=== PATIENT | female | born 1980 | race Caucasian/White ===

== ENCOUNTER 2018-03-20 19:01 | Inpatient (IN) | payer BC ==
[2018-03-20 19:40] LABS: PLATELET COUNT 304 10^3/uL (150-400)
--- NOTE | 2018-03-20 19:48 | EDPHY ---
H & P Stated Complaint: medical clear for ECT - Personal History LMP (Females 10-55): 8-14 Days Ago Current Tetanus Diphtheria and Acellular Pertussis (TDAP): Yes - Medical/Surgical History Hx Asthma: No Hx Chronic Respiratory Disease: No Hx Diabetes: No Hx Cardiac Disease: No Hx Renal Disease: No Hx Cirrhosis: No Hx Alcoholism: No Hx HIV/AIDS: No Hx Splenectomy or Spleen Trauma: No Other PMH: Depression, Bipolar, Hypothyroid, Migraine's, Herniation L3/4 - Social History Smoking Status: Never smoked Alcohol Use: Sober Drug Use: None Time Seen by Provider: 03/20/18 19:13 HPI/ROS: CHIEF COMPLAINT: Medical clearance for ECT HISTORY OF PRESENT ILLNESS: 37-year-old female with severe depression is presents for medical clearance for ECT. She has a history severe depression, starting in the period. She underwent ECT x1 in the past, with significant relief and depression. The benefit lasted for approximately 3 years and now the depression has returned. Multiple medication changes without relief. Feels suicidal, does not currently have a plan. She is scheduled for ECT tomorrow. She has no physical complaints. No recent illness or injury. No prior cardiopulmonary disease. REVIEW OF SYSTEMS: complete 10 point ROS reviewed and is negative except for the noted elements in the HPI (Yolanda Nicholson) - Social History Additional Social History: Lives in [place] (Yolanda Nicholson) - Physical Exam Exam: General Appearance: Alert, pleasant Eyes: Pupils equal and round, no conjunctival pallor ENT, Mouth: Mucous membranes moist Neck: Normal inspection Respiratory: Lungs are clear to auscultation Cardiovascular: Regular rate and rhythm, no murmur Gastrointestinal: Abdomen is soft and nontender Neurological: A&O, nonfocal, normal gait Skin: Warm and dry, no rash Extremities: Nontender, no pedal edema Psychiatric: Mood and affect normal (Yolanda Nicholson) Constitutional: Initial Vital Signs Temperature (C) 36.7 C 03/20/18 19:04 Heart Rate 72 03/20/18 19:04 Respiratory Rate 18 03/20/18 19:04 Blood Pressure 133/72 H 03/20/18 19:04 O2 Sat (%) 99 03/20/18 19:04 O2 Delivery Mode Room Air Allergies/Adverse Reactions: stan seeds Allergy (Uncoded 03/20/18 19:08) Home Medications: Medication Instructions Recorded Brexpiprazole [Rexulti 1 MG (*)] 1 mg PO Q2D 03/20/18 Levothyroxine [Synthroid 150 mcg 150 mcg PO DAILY06 03/20/18 (*)] [place] Carbonate [[place] 300 mg PO TID 03/20/18 Carbonate Cap 300 mg (*)] Mirtazapine 15 mg PO HS 03/20/18 Venlafaxine HCl [Venlafaxine HCl 75 mg PO DAILY 03/20/18 ER] Venlafaxine HCl [Venlafaxine HCl 150 mg PO DAILY 03/20/18 ER] celeCOXIB [Celebrex (*)] 200 mg PO DAILY 03/20/18 clonazePAM [Clonazepam] 1 mg PO BID@09,12 03/20/18 Medical Decision Making ED Course/Re-evaluation: 2044: seen by [facility], placed on an M1 hold. Looking for inpatient disposition. Interestingly, this patient is not here for planned ECT. She is not a patient of Dr. Delarosa. However she has severe depression and recently had a suicidal attempt. (Yolanda Nciholson) Assumed care of this patient at 9:[address] Yolanda Nicholson. Her care was assumed by Dr. Compa Pan at 11:00 p.m.. We are awaiting placement. Patient asked to take her typical night meds and I agree that she may. (Kelly Robin) Differential Diagnosis: Differential diagnosis of the patient's presenting complaint was considered including but not limited to functional and major depression, situational depression, hypothyroidism, medication side effect, drugs and alcohol abuse. ( Kelly Robin) Other Provider: [address] Robin pending placement. 07 patient signed out to Dr. Gilbert pending placement. (Anant Pan) Care assumed at 6:40 a.m. Plan for inpatient placement at [facility]. 1445: Signed out to Dr. Dominguez with inpatient placement still pending. (Kg Gilbert) - Data Points Laboratory Results: Laboratory Results 03/20/18 19:30 03/20/18 19:30 Medications Given: Celecoxib (Celebrex) 200 mg PO BID LUCIO Stop: 09/17/18 08:59 Last Admin: 03/21/18 07:15 Dose: 200 mg Discontinued Medications Brexpiprazole (Rexulti) 1 mg PO EDNOW ONE Stop: 03/21/18 07:46 Last Admin: 03/21/18 07:58 Dose: 1 mg Clonazepam (Klonopin) 1 mg PO EDNOW ONE Stop: 03/21/18 06:43 Last Admin: 03/21/18 07:14 Dose: 1 mg Clonazepam (Klonopin) 1 mg PO EDNOW ONE Stop: 03/21/18 13:47 Last Admin: 03/21/18 14:13 Dose: 1 mg Levothyroxine Sodium (Synthroid) 150 mcg PO DAILY AT 6AM ONE Stop: 03/21/18 07:01 Last Admin: 03/21/18 07:14 Dose: 150 mcg [place] Carbonate ([place] Carbonate) 300 mg PO ONCE ONE Stop: 03/21/18 07:01 Last Admin: 03/21/18 07:15 Dose: 300 mg [place] Carbonate ([place] Carbonate) 300 mg PO EDNOW ONE Stop: 03/21/18 13:47 Last Admin: 03/21/18 14:13 Dose: 300 mg Venlafaxine HCl (Effexor Xr) 150 mg PO DAILY ONE Stop: 03/21/18 06:31 Last Admin: 03/21/18 07:14 Dose: 150 mg Departure - Departure Disposition: [facility] IP Clinical Impression: Depression, Suicidal ideation Condition: Good Referrals: JOEL ARCHIBALD [Other] - As per Instructions
--- NOTE | 2018-03-20 21:00 | CPEKG ---
Test Reason : OPEN Blood Pressure : / mmHG Vent. Rate : 068 BPM Atrial Rate : 068 BPM P-R Int : 176 ms QRS Dur : 087 ms QT Int : 405 ms P-R-T Axes : 067 060 068 degrees QTc Int : 431 ms Sinus rhythm Confirmed by Yolanda Nicholson ([id number]) on 03/20/2018 8:59:36 PM Referred By: Yolanda Nicholson Confirmed By:Yolanda Nicholson
--- NOTE | 2018-03-20 22:41 | ASMTTLCEVL ---
TLC Evaluation - Basic Information Evaluation Start Date and 03/20/2018 08:50 PM Time Hospital Status Answers: M1 Hold 72-hr M1 Hold Start Date 03/20/2018 08:17 PM and Time Patient statement Notes: I have severe depression with anxiety and feelings of doom. Narrative Notes: Pt is a 37 year old female who self presented to [facility] Ed from [place]. Pt called [facility] earlier to inquire about our ECT program and came to the emergency department for medical clearance. Pt reports she has been depressed for 5 months with suicidal thoughts every day. She stated on the drive down to our hospital, she thought, Maybe if I just drove off the road. She reports her symptoms started after she developed post- depression with her youngest daughter who is 3 years old. Pt reports she has been having intrusive thoughts Pt reports she is unable to care for her children, function at her job or concentrate. Pt reports she spends most of her days isolated and staying in bed all day. Diagnosis History Notes: Pt reports bipolar 2 has been mentioned to her but no official dx has been made. She reports one psychiatrist told her he suspects she may have a mild form of it and the other doctor does not suspect she has it Prior suicide attempts Notes: Pt reported she attempted suicide 2 weeks ago by overdosing on clonazepam and drinking wine. Pt stated, It didnt work for course, and I just fell asleep. Pt stated she also had a suicide attempt after her youngest daughter was born. Prior hospitalizations Notes: Pt was hospitalized 3 years ago at [facility] for 2 weeks and then she went to [facility] and stayed a month in their post- unit where she received ECT treatments. Pt stated she responded well to the treatment and was functional when she got out of the hospital. Treatment Responses Notes: Pt stated she felt ECT was helpful. History of violence Notes: Pt denies any HI. Therapist: None Psychiatrist: Pt sees Jose Xiong MD Medications (name, dosage, route, freq uency) Notes: Clonazepam 1 mg 1 in am and 1 PM; Effexor 225mg ER; Mertazapine 15mg at bedtime; [place] 300mg TID; Rexalte 1mg every other day; Celebrex and synthroid Allergies/Reaction Notes: Zachary Sleep Notes: Pt reports she has erratic sleep. She states he wakes up at 3:30am every morning and states, I dont know what to do from there. Appetite Notes: Wnl Medical/Surgical history Notes: Hypothyroidism and a herniated disk Substance use history (frequency, intensity, his tory, duration) Notes: Pt stated she was drinking wine occasionally but has stopped because it was making her depression worse. Pt denied any drug use. Pts utox was negative for all substances and bal was.0. Family composition Notes: Pts father in 2010 of cancer. Her mother and sister live in [place]. Pt reports she has a strained relationship with her sister and mother. Need for family Answers: No participation in patient's care Family psychiatric/substance abuse history Notes: Pt reported her father and sister had a hx of alcoholism. Developmental history Notes: Pt reported she struggled with anorexia at age [age] years old and went into tx. Pt reported she was a straight A student, high achiever and received a full music scholarship for college. Pt reported her parents suspected she may have OCD as a child. Abuse concerns Answers: None Marital status/children Notes: Pt is and has 2 children ages 3 and 5. Pts ex- have full custody of the children. Pt had visitation rights until 2 months ago and then she stated, I havent been able to care for them. Pt stated she lost custody of her children nahed of the post- thoughts and Im not well enough. Living situation Notes: Pt lives in [place], [place] alone. Sexual history/orientation Notes: Unable to assess Peer support/family strengths Notes: Pt stated she does not have any friends. Education level/history Notes: Pt reports she has 4 degrees. She has a BA in Music a Ba in Communication Disorders a Masters in Speech Language Pathology and she almost received her doctorate in music. 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 Pt took FMLA 2 days ago. Notes: None Legal Notes: None reported. Protestant/Spiritual Notes: None reported. Leisure Notes: Unable to assess. Collateral Notes: None Patient's strengths Answers: Insightful (Please select at least TWO strengths): Intelligent Motivated for Treatment Willingness TLC Evaluation - Mental Status Exam Appearance: Answers: Appropriate Eye Contact: Answers: Good/Direct Mood: Answers: Depressed Affect: Answers: Anxious Nervous Sad Behavior: Answers: Cooperative Crying Speech: Answers: Relevant Logical Clear Coherent Thought Process: Answers: Organized Oriented Alert Intact Insight: Answers: Good Judgement: Answers: Fair Depression Answers: Difficulty Concentrating Signs/Symptoms: Flat Affect Hopelessness Psychomotor Retardation Sad Mood Worthlessness Anxiety Signs/Symptoms Answers: Generalized Anxiety Hallucinations: Answers: None Pt reported to have Answers: No suicidal/self-injuring ideation/behavior? Pt reported to be making Answers: Yes suicidal/self-injuring threats? Pt reported to have Answers: No aggression/assault ideation/behavior? Pt reported to be making Answers: No aggression/assault threats? Pt exhibits inability to Answers: No care for self/grave disability? Ideation/behavior is Answers: No chronic? Patient has a specific Answers: No plan? History of Answers: Yes suicidal/self-injuring ideation, behavior, or threats? History of Answers: No aggressive/assaultive ideation, behavior, or threats? History of serious Answers: No physical harm to self/others while in treatment setting? TLC Evaluation - Suicide/Homicide Risk Suicide Risk Factors: Answers: < 20 or > 40 Years of Age Flat Affect Hopelessness Lack of Social Support Major Depression Prior Suicide Attempt(s) Unstable Living Situation Homicide/violence risk Answers: None factors: Current Suicidal Answers: Yes Ideation? Current Suicide Ideation Pt stated she has intrusive thoughts daily for the Frequency: past 5 months. Current Suicidal Ideation Answers: Yes in the Past 48 Hours? Current Suicidal Ideation Answers: Yes in the Past Month? Current Suicidal Answers: No Ideation, Worst Ever? Suicide Internal Answers: Absence of Psychosis Protective Factors: Suicide External Answers: Responsibility to Protective Factors: Children Ranking of patient's Answers: Severe suicidal risk: Ranking of patient's Answers: Low homicidal risk: TLC Evaluation - Wrap-up AXIS I Diagnosis (include DSM-V and ICD-10 codes), must also be entered in [employer], which is the source of truth. Notes: In consultation with [facility] ED physician, Yolanda Nicholson MD and on-call psychiatrist Nasrin Linda MD concurred that pt appears to meet 27-65 criteria requiring psychiatric hospitalization as pt appears to be at risk of harm to self due to a mental illness condition. Pt was given the 3[facility] prohibited belongings list while in the ED. Major Depressive Disorder, recurrent, severe 296.33 (F33.2) Evaluation End Date and 03/20/2018 10:35 PM Time (HH:MM): Date Signed: 03/20/2018 10:40 PM Electronically Signed By:Chelle Trent
[2018-03-21] MEDS ORDERED: VENLAFAXINE XR 150 MG CAP PO ONE (06:30)
[2018-03-21] MEDS ORDERED: LITHIUM CARBONATE ER 300 MG TAB PO ONE (06:30)
[2018-03-21] MEDS ORDERED: clonazePAM 1 MG TAB PO ONE ×2 (06:42→13:46)
[2018-03-21] MEDS ORDERED: LITHIUM CARBONATE 300 MG CAP PO ONE (07:00)
[2018-03-21] MEDS ORDERED: LEVOTHYROXINE 150 MCG TAB PO ONE (07:00)
[2018-03-21] MEDS ORDERED: BREXPIPRAZOLE 1 MG TAB PO ONE (07:45)
[2018-03-21] MEDS ORDERED: LITHIUM CARBONATE 300 MG TAB PO ONE (13:46)
--- NOTE | 2018-03-21 14:44 | ASMTLCPROG ---
Notes Note: Notes: TLC met with pt. to finalize dispo. Pt was read her rights and signed belongings list. Pt will transfer to [facility]. Date Signed: 03/21/2018 02:43 PM Electronically Signed By:Supriya Cannon
--- NOTE | 2018-03-21 14:46 | ASMTTCLDSP ---
TLC Discharge Disposition Disposition: Answers: Admit Disposition Notes: Notes: In consultation with [facility] ED physician, Kg Gilbert MD and on-call psychiatrist, Roni More MD, both concurred that pt appears to meet 27-65 criteria requiring psychiatric hospitalization as pt appears to be at risk of harm to self due to a mental illness condition. Pt was given the 3N prohibited belongings list while in the ED. Discharge Concerns/Recommendations: Notes: Admit to 3[facility] Was patient given the Answers: Yes Inpatient Behavioral Health Prohibited Belongings List while in the ED? For inpatient Dr. Roni More admission, the following psychiatrist agreed to accept patient for admission to Behavioral Health ([facility]): Type of Hold: Answers: M1/72-hour Hold Hold initiated by: Answers: ED Physician Date Signed: 03/21/2018 02:45 PM Electronically Signed By:Supriya Cannon
--- NOTE | 2018-03-21 15:58 | GCON ---
[f rep ] CONSULTATION MEDICINE CONSULTATION DATE OF CONSULTATION: 03/21/2018 CHIEF COMPLAINT: Depression. HISTORY: This is a 37-year-old female who has a past medical history of severe depression, previousl y requiring ECT, as well as hypothyroid and migraines who presents with significant depression with s uicidal ideation. Patient notes she has been having a hard time with thinking about hurting herself, and per chart review, also had a recent suicide attempt. 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 She states that several years ago, she had ECT for severe depression and this put her depression into remission up until recently. She does agree to not do an ything to harm herself while here in care and states that she does feel safe currently. PAST MEDICAL HISTORY: Includes: 1. Depression. 2. Hypothyroidism. 3. Migraines. 4. Endometriosis. 5. Herniated disk. PAST SURGICAL HISTORY: Includes prior laparoscopy. FAMILY HISTORY: Noncontributory. SOCIAL HISTORY: Patient is . 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 She does not drink. Does not smoke. Does not use any drugs. REVIEW OF SYSTEMS: 10-point review of systems obtained and negative, except as per HPI. HOME MEDICATIONS: Include: 1. [place]. 2. Venlafaxine. 3. Brexpiprazole. 4. Mirtazapine. 5. Clonazepam. 6. Celebrex. 7. Levothyroxine. ALLERGIES: No known drug allergies. PHYSICAL EXAM: VITAL SIGNS: BP 120/88, heart rate 76, respiratory rate 16, O2 sats 99% on room air, temperature 36.3. GENERAL APPEARANCE: Well-developed/well-nourished female. She is awake and aler t. She is in no acute distress. EYES: Anicteric. HENT: Oropharynx clear. CARDIOVASCULAR: Regul ar rate and rhythm. No MRG. PULMONARY: CTA bilaterally. Normal work of breathing. ABDOMEN: Soft , nontender, nondistended. EXTREMITIES: No clubbing, cyanosis, or edema. SKIN: Warm, dry, well perfused. NEURO/PSYCH: Patidolly montesinos has a flat affect. She is expressing suicidal ideation and depression. CLINICAL DATA: Labs reviewed and notable for white blood cell count of 10.5. Chemistry notable for sodium of 131 and creatinine 1.2. U-tox is negative. ASSESSMENT/PLAN: This is a 37-year-old female with a history of depression, presenting with suicidal ideation. 1. Suicidal ideation. Patient is currently on an M1 hold and will be brought over to Behavioral a lth Unit. I do not see any medical reason that she would not be able to participate in ECT or any ot her therapy felt to be indicated by the behavior health team. She has benefitted from ECT in the pas t. 2. Depression. As per above. 3. Acute kidney injury. Noted on chemistry to have a serum creatinine of 1.2, which is likely above her baseline, also sodium of 131, consistent with likely prerenal volume depletion. Recommend she p ush fluids. Do not feel that need to be repeated unless she has poor urine output or othe r signs or symptoms that this is not improving. 4. Hypothyroid. Would continue her levothyroxine. 5. Herniated disk. She states this is something she is able to manage with stretching exercises and Celebrex. Would continue both of those. 6. Patient is new to my care. Old records reviewed, summarized as per HPI and past medical history. Care plan reviewed with Behavioral Health liaison, including plans for inpatient behavioral health monitoring. Thank you for this consultation. Medicine will be available peripherally should questions arise carolina landin this patient's hospitalization. /[id number]/MODL
[2018-03-21] MEDS ORDERED: NICOTINE POLACRILEX 2 MG GUM B PRN (21:21)
[2018-03-21] MEDS ORDERED: LORazepam 0.5 MG TAB PO PRN (21:21)
[2018-03-21] MEDS ORDERED: MAG HYDROX/AL HYDROX/SIMETH 30 ML UDCUP PO PRN (21:21)
[2018-03-21] MEDS ORDERED: OLANZapine DISINTEGR 10 MG TAB PO PRN (21:21)
[2018-03-21] MEDS ORDERED: MAGNESIUM HYDROXIDE 30 ML UDCUP PO PRN (21:21)
[2018-03-21] MEDS ORDERED: MELATONIN 3 MG TAB PO PRN (21:26)
[2018-03-21] MEDS ORDERED: MIRTAZAPINE 30 MG TAB PO SCH (22:00)
[2018-03-21] MEDS: MIRTAZAPINE 15 MG TAB PO SCH (22:05)
[2018-03-21] MEDS: LITHIUM CARBONATE 300 MG CAP PO SCH (22:05)
[2018-03-22] MEDS: ACETAMINOPHEN 325 MG TAB PO PRN ×3 (06:24→19:33)
[2018-03-22] MEDS: LITHIUM CARBONATE 300 MG CAP PO SCH ×3 (08:32→16:20)
[2018-03-22] MEDS: VENLAFAXINE XR 75 MG CAP PO SCH (08:32)
[2018-03-22] MEDS: VENLAFAXINE XR 150 MG CAP PO SCH (08:32)
[2018-03-22] MEDS: clonazePAM 1 MG TAB PO SCH ×2 (08:33→13:17)
--- NOTE | 2018-03-22 09:25 | ASMTBHMTP ---
Master Treatment Plan Master Treatment Plan Answers: Depressed Mood with for: Suicidal Ideation Date: 03/22/2018 Diagnosis on Admission: Major Depressive Disorder, recurrent, severe 296.33 (F33.2) Expected length of stay: 3-5 Reason for admission: Notes: The patient reported that she was psychiatrically evaluated in [place]. During the evaluation, the patient expressed interest in ECT treatment at which point the house fellow recommended [facility]. The patient self presented to [facility] ED in hopes of receiving inpatient ECT treatment. Patient's stated presenting problems: Notes: The patient reported that she has been "in a depressed state for the past five months." Her "medications aren't working" and she "doesn't want to exist." She reported that although she one year ago her ex- remains supportive. The patient reported overwhelm from her role as a parent to two children. She has a hx of inpatient ECT treatment at the [facility]. The patient sought MH intervention due to post- depression a little over three years ago. The patient stated, "I want to be a good mom." Patient's goals for treatment: Notes: The patient's reported goals include improved sleep, decreased crying spells, and finding "pleasure" socially. Patient's strengths: Notes: The patient reported that she is "Intelligent, determined, and aware" that she needs treatment. Identify supports outside of hospital: Notes: The patient is supported by her ex-, her mother, and sister, as well as, her outpatient psychiatrist, Noah Xiong MD. Discharge criteria: Notes: Suicidal ideation will resolve and the patient will have a plan to safely manage recurrent suicidal ideation. 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 She is not certain whether she will be able to obtain family medical leave due to short length of employment. Master Treatment Plan Required Signatures Psychiatrist signature: Answers: Psychiatrist: RN on-shift signature: Answers: RN: Patient signature: Answers: Patient: Date Signed: 03/22/2018 09:24 AM Electronically Signed By:Radha Lowery
[2018-03-22] MEDS: LEVOTHYROXINE 150 MCG TAB PO SCH (10:51)
[2018-03-22] MEDS: MIRTAZAPINE 15 MG TAB PO SCH (20:55)
[2018-03-22] MEDS ORDERED: MIRTAZAPINE 30 MG TAB PO SCH (21:00)
--- NOTE | 2018-03-23 05:40 | BAPA ---
[f rep st] ADMISSION PSYCHIATRIC ASSESSMENT DATE OF SERVICE: 03/22/2018 CHIEF COMPLAINT: "This depression isn't going away, and I cannot deal with it any longer. I can't function." HISTORY OF PRESENT ILLNESS: The patient is a 37-year-old female with a self-report of lifelong depression. She states that "I've always been this way. I've been depressed since at least age of 3." She states that "I remember crying, crying and crying as a very young child over the realization that everyone dies." She states that she received treatment at approximately the age of 11 with sertraline and that this was effective for her till approximately the age of 24. At that time, she stopped the sertraline due to planning to become . The was fine with no recurrence of her depression, but she did report some "mild depression symptoms." She then restarted the sertraline with 2 months left in her , but states that it did not help. She reports, "I was crying all the time and worried about everything." She then delivered the baby, and "the whole world crashed." Her mood became more depressed, her crying worsened, her worrying and anxiety worsened, and she began having thoughts of suicide. She was then hospitalized after she cut both wrists about 4 weeks . She was discharged from this hospitalization, then readmitted due to recurrent suicidal ideation. She was discharged again and transferred to a special treatment unit at the [facility] where she was treated for a month. This treatment included ECT for 12 treatments, and she states that this was effective. She repeatedly states that "it helped enough to get the medications working again." She then states that she feels like "it kind of wore off," and she wishes she would have done some maintenance treatment. She returned home from the hospital in 2014 "like a deer in the headlights." She states that she "was not ready to be a parent" and describes how she was not particularly adapted to be a caregiver and to deal with the stresses of parenthood. She states she began to see Tyrese Lipscomb, a psychiatrist in [place], at that time who started clonazepam. This provided significant relief for her anxiety which in turn caused her mood to improve slightly. He then added lithium and Effexor up to doses of 900 and 225 mg respectively. Mirtazapine was added in doses from 15 to 45 mg for sleep and mood. She states that these help significantly, and over time she tried to decrease the clonazepam, but "if I went down, things got worse." She reports having functioned overall better through this time, but had episodes of abnormally increased energy, productivity, activity, and spending, and she states that her would notice this, and Dr. Xiong diagnosed her with bipolar disorder. These would occur every 2 or 3 months, and she viewed them as relative health, but others viewed as abnormal and likely manic or hypomanic. In 2016, she from her due to worsening depression in her view, and she states, "my emotional problems and my problem bonding with the children were the problem. I basically didn't know if I wanted to be a mom." She reports problems with physical intimacy throughout her life and stated that this was in her relationship with her also, but also in how to interact with her children. She states that she was not naturally nurturing and that this was difficult for her. The couple ultimately in March of 2017, and the patient felt relieved. She remained on the same medications of Effexor, lithium and Remeron , and states that her mood was stable with occasional episodes of mild hypomania. She reports "having a really good run from June 2017 to October 2017," at which time she "dated a lot of guys" and had a generally good time. She states she did some things that she has never done in her life, like going to concerts and folk festivals and was enjoying herself. In October of 2017, however, she states her then boyfriend "gave me something that was supposed to be MDMA, but it wasn't." She states she had this substance tested, and it was "probably MDA which is neurotoxic." She states she became suddenly depressed at that time, and Dr. Xiong had added Rexulti just before that, but she feels like it "quit working." She then saw Dr. Bar Bender in [place], who was a psychiatrist, and he recommended discontinuing the Effexor. She did this and "felt really bad" and became more suicidal. She then restarted the Effexor and went back to see Dr. Xiong. In the meantime, she considered TMS with Dr. Bender, but did not pursue this due to cost. Dr. Xiong stated that he felt she should pursue ECT. Increases in her lithium and Effexor were undertaken at this time with no benefit. The patient states that she continued to try to live a normal life. It worked for several months until recently when a co- worker pulled her aside to tell her that she was not functioning adequately, and this made her "face reality" that she was extremely depressed and could no longer work. She then went to [place] to do an intake, and the person at the [facility] told her that she would be best served by coming to the [facility] in [place] for ECT treatment if that is what her doctor recommended. She then drove from there to [place] presenting to the emergency department requesting treatment. I visited with the patient today on the unit for 2-1/2 hours. We reviewed her history of her depressive episodes and medication treatments. She states that she has never consistently done well with medications and that her mood has gradually worsened over the years both in stability and quality, and that she feels like this current entrenched depression has existed since October of 2017. She states that she is no longer able to work or function normally, and she is having thoughts of , dying, and suicide. She states she had thoughts of wrecking her car on the drive over and is concerned that if something is not done interventionally that she could act on this again. PAST PSYCHIATRIC HISTORY: The patient has had 1 previous hospitalization in [place] as well as the 2 other hospitalizations in [place] preceding that. She states that she had the 1 suicide attempt in cutting her wrists in the past. She has previously tried Zoloft, Effexor, lithium, Zyprexa , Seroquel, Abilify, Xanax and Ativan, and none of these were consistently effective. She has not had previous trial of TMS. She currently sees Dr. Xiong in [place], [place]. His phone number is [phone]. A phone call is placed to Dr. Xiong, but recording indicates that he is out of town until the 27 of March. ALLERGIES: Zachary seeds. CURRENT MEDICATIONS: Celebrex 200 mg daily, Rexulti 1 mg every other day, clonazepam 1 mg b.i.d., levothyroxine 150 mcg daily, lithium carbonate 300 mg t.i.d., Remeron 15 mg at h.s., Effexor XR 225 mg daily. PAST MEDICAL HISTORY: She has a history of hypothyroidism and a herniated disk in her back. PAST SURGICAL HISTORY: She had 12 previous ECT treatments with no problems with anesthesia except some dizziness and a laparoscopy for endometriosis and ovarian cysts without complication. SOCIAL HISTORY: Patient lives in [place], [place]. 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 She states she has worked there for 8 months and is 50 hours short of the required hours to receive FMLA. She states she opted out of short-term disability coverage when she was hired. She was for 5 years before a year ago. She has 2 daughters, ages 3 and 5. has full custody, but she was previously visiting with her daughters 2-3 times a week. She has stopped doing this now due to her depressive symptoms. She states she does not believe that she can care for them any longer. She states secondarily "I don't think I can care for myself either." Patient denies any significant substance use. FAMILY HISTORY: Patient denies any family history of depression, bipolar disorder, or suicide. She is unaware of any family member who is treated with ECT, though states she had a great- or [id number] who was in an asylum. ADMISSION LABORATORY: CBC shows a white count of 10.59, hematocrit up at 49.0, otherwise normal. Serum chemistries show sodium low at 131, creatinine slightly elevated at 1.2. Beta-hCG is negative. Urine drug screen is negative for all substances. Conley level is 0.7 on admission. MENTAL STATUS EXAMINATION: A well-developed, healthy-appearing, well-groomed, calm, pleasant and cooperative female. She interacts well with the examiner, maintaining good eye contact, and overall calm and pleasant demeanor. Her activity and speech are normal. Her affect is restricted, dysphoric, tearful at times, stable, appropriate, and congruent. Her mood is described as "really depressed." Her thought process is linear and goal directed. Her thought content reveals no evidence of psychosis. She is alert and oriented to person, place, time, and situation, and her sensorium is clear. Her intellect appears to be average to above average as evidenced by her educational and occupational histories, fund of knowledge, and vocabulary. She endorses thoughts of passive thoughts of suicide and a wish for and dying, though denies any current intent to harm or kill herself. Her insight and judgment appear to be good. IMPRESSION: Bipolar II disorder, most recent episode mixed, severe, without psychosis. Chronic illness. Recurrent illness. Parenting stress. Employment problems. Financial problems. Lack of natural supports. Possible renal insufficiency. Possible hyponatremia. The patient is a pleasant 37-year-old female with a history of recurrent treatment-resistant depression, presenting in the period likely due to a bipolar type II disorder. I have discussed with her various options for ongoing medication management which she believes would not be helpful, and she prefers to have a retrial of ECT as this was the most helpful thing for her in the past. I think this is reasonable, but would like to also look at her medications during this time. I am concerned about her creatinine being slightly elevated and her sodium being low. The hyponatremia could be due to the Effexor as it is known to cause syndrome of inappropriate antidiuretic hormone, and also the lithium could be affecting her kidneys. We will address these as we go. I left a message for Dr. Xiong for his return, will speak with him when he is available. I discussed with the patient my belief that she would be a good ECT candidate primarily because she has responded well to ECT in the past. I also believe that her previous failure of three or more adequate antidepressant, mood stabilizer, and antipsychotic trials indicates treatment resistance and she would fall to the algorithmic definition of treatment resistance and ECT is appropriate. I believe that her neurovegetative symptoms and elevated suicide risk are also indications for ECT. There is no obvious primary personality disorder and no contraindicating medical issues that would prevent starting. I have discussed with the patient that her primary alternative to ECT is ongoing medication management. Overall, given her current severity of symptoms and previous treatment response including recently, I have indicated a 15% to 20 % chance of reaching remission with further medication trials at this time. I have also indicated a 60% to 65% chance of reaching remission of her current depressive symptoms with ECT. I discussed the acute course of ECT being on a Monday, Monday, Monday basis performed here at [facility], and she states that she understands this from her experience. She voices desire to begin the treatments in the hospital as she believes that she cannot care for herself out of the hospital and is concerned for her safety. She states ultimately she would like her mother to come to town and they could live in some circumstance in [place] while she completed her treatments. We discussed the typical ranges of treatments, and she understands that there is no guarantee ECT will be effective. We discussed the extremely rare, rare, uncommon and common side effects of ECT including major risks such as occurring 1 in 10,000 and potential risks to the cardiovascular and central nervous systems. Side effects such as nausea , headaches, and agitation were reviewed, and she states she is prone to migraine headaches and previously used sumatriptan prophylactically. We agreed that we would see how this went first, and it is possible that the left frontal lead placement last time could have contributed to this as this is the spot where she has her headaches. Particular time was spent discussing transient and persistent cognitive side effects of ECT. Side effects such as anterograde, retrograde, and autobiographical memory deficiencies were reviewed. I also talked with her about the expectation of other dense amnesia on a treatment day and overall poor working memory and impairments in recall during the treatments. She states she is familiar with this and did well with no serious cognitive deficits during last treatment. We discussed the dietary and behavioral requirements during ECT. She states she is familiar with this. I offered to give her a packet of educational materials which she declined. She states, however, she will write down any questions that she has to ask me at a later time. All in all, I believe the patient is an excellent candidate for ECT and will likely begin tomorrow after the anesthesiologist has had a chance to review her information. /[id number]/MODL MTDD
[2018-03-23] MEDS ORDERED: CITRIC ACID/SODIUM CITRATE 30 ML UDCUP PO PRN (07:08)
[2018-03-23] MEDS ORDERED: ONDANSETRON DISINTEGRATING 4 MG TAB PO PRN (07:08)
[2018-03-23] MEDS: ACETAMINOPHEN 325 MG TAB PO PRN ×3 (08:20→17:07)
[2018-03-23] MEDS: LEVOTHYROXINE 150 MCG TAB PO SCH (10:08)
[2018-03-23] MEDS: VENLAFAXINE XR 75 MG CAP PO SCH (12:00)
[2018-03-23] MEDS: BREXPIPRAZOLE 1 MG TAB PO SCH (12:00)
[2018-03-23] MEDS: VENLAFAXINE XR 150 MG CAP PO SCH (12:06)
[2018-03-23] MEDS: LITHIUM CARBONATE 300 MG CAP PO SCH ×2 (13:28→20:46)
[2018-03-23] MEDS: clonazePAM 1 MG TAB PO SCH ×2 (13:29→17:45)
[2018-03-23] MEDS ORDERED: CITRIC ACID/SODIUM CITRATE 30 ML UDCUP ONE (15:13)
[2018-03-23] MEDS ORDERED: ONDANSETRON DISINTEGRATING 4 MG TAB ONE (15:13)
[2018-03-23] MEDS ORDERED: fentaNYL 100 MCG/2 ML INJ ONE (15:37)
[2018-03-23] MEDS ORDERED: GLYCOPYRROLATE 0.2 MG/1 ML VIAL ONE (15:38)
[2018-03-23] MEDS ORDERED: MIDAZOLAM 2 MG/2 ML VIAL ONE (15:38)
[2018-03-23] MEDS ORDERED: KETOROLAC 30 MG/1 ML SDV ONE (15:38)
[2018-03-23] MEDS ORDERED: SUCCINYLCHOLINE CHLORIDE 200 MG/10 ML VIAL ONE (15:39)
[2018-03-23] MEDS ORDERED: METHOHEXITAL SODIUM 100 MG/10 ML SYR IVP ONE (15:39)
[2018-03-23] MEDS ORDERED: ROCURONIUM 50 MG/5 ML VIAL ONE (15:39)
[2018-03-23] MEDS: NS 1,000 ML IV PRN (15:42)
--- NOTE | 2018-03-23 15:56 | PDECTPN ---
ECT Progress Note Patient Problems: Problems Problem Status Onset Code Depression Acute F32.9 Suicidal ideation Acute R45.851 Date: 03/23/18 ECT provider: Murtaza More Anesthesia: Beau Monikashalini Stimulus dose (%): 35 Pulse width: 0.5 ECT EMG (sec): 307 ECT treatment type: bilateral QIDS-SR Total Score: 25 QIDS-SR Question #12 Score: 3 MMSE Total Score (Max = 21): 21 Next ECT date: 03/26/18 Next ECT time: 08:30 O/P psychiatrist follow up with DrIsabella: Noah Xiong O/P psychiatrist follow up: direct communication Home medications: Medication Instructions Recorded Brexpiprazole [Rexulti 1 MG (*)] 1 mg PO Q2D 03/20/18 Levothyroxine [Synthroid 150 mcg 150 mcg PO DAILY06 03/20/18 (*)] [place] Carbonate [[place] 300 mg PO TID 03/20/18 Carbonate Cap 300 mg (*)] Mirtazapine 15 mg PO HS 03/20/18 Venlafaxine HCl [Venlafaxine HCl 75 mg PO DAILY 03/20/18 ER] Venlafaxine HCl [Venlafaxine HCl 150 mg PO DAILY 03/20/18 ER] celeCOXIB [Celebrex (*)] 200 mg PO DAILY 03/20/18 clonazePAM [Clonazepam] 1 mg PO BID@09,12 03/20/18 Medication review: completed Current treatment plan: acute phase Treatment plan frequency: 3 times per week ECT narrative: Pt presents for initial acute course ECT treatment. States she is "kind of anxious." Discussed again the treatment and overall treatment plan. She is motivated for positive change, but voices ongoing prominent SI. Discussed h/a prophylaxis. Affect is dysphoric, blunted, stable. Mood is "not good." TP is linear. TC reveals no psychosis SI persists. Underwent bilateral ECT without complications. Good first treatment. Continue acute course ECT.
--- NOTE | 2018-03-23 15:57 | PDANEPAE ---
ECT Pre Anesthetic Evaluation Allergies/Adverse Reactions: stan seeds Allergy (Uncoded 03/20/18 19:08) Patient ID confirmed: Yes H&P reviewed: Yes Pre-anesthetic history reviewed: Yes Heart: regular rate and rhythym Lungs: no respiratory distress Mallampati Score: Class 1 ASA Status: II Home Medications: Medication Instructions Recorded Brexpiprazole [Rexulti 1 MG (*)] 1 mg PO Q2D 03/20/18 Levothyroxine [Synthroid 150 mcg 150 mcg PO DAILY06 03/20/18 (*)] [place] Carbonate [[place] 300 mg PO TID 03/20/18 Carbonate Cap 300 mg (*)] Mirtazapine 15 mg PO HS 03/20/18 Venlafaxine HCl [Venlafaxine HCl 75 mg PO DAILY 03/20/18 ER] Venlafaxine HCl [Venlafaxine HCl 150 mg PO DAILY 03/20/18 ER] celeCOXIB [Celebrex (*)] 200 mg PO DAILY 03/20/18 clonazePAM [Clonazepam] 1 mg PO BID@09,12 03/20/18 Medication review: completed Patient interviewed: Yes Patient examined: Yes Anesthetic plan discussed with patient: Yes Anesthetic risks discussed with patient: Yes ECT Pre-Anesthetic History - Height & Weight Height: 167.64 cm Weight: 65.771 kg BMI: 23.41 - Anesthesia History Hx Anesthesia Complications (with details): None Family Hx Anesthesia Complications: None - Medications In the Past 6 Months the Patient Has Taken: Antibiotics, Arthritis Medication, Thyroid Medication - Tobacco/Alcohol/Drug Use Smoking Status: Never smoked Alcohol Use: No - Prior Surgeries/Hospitalizations Prior Surgeries: None in last year Prior Medical Hospitalizations: 2015 - Pulmonary History ECT Hx Asthma: No Hx Abnormal Chest X-Ray: No Hx Oxygen in Use at Home: No - Cardiovascular History Hx Hypertension: No Currently Uses Hypertension Medication: No Hx Arrhythmias: No Hx Palpitations: No Hx Chest Pain: No Hx Coronary Artery / Peripheral Vascular Disease: No Hx Blood Clot: No - Neurologic History Hx Cerebrovascular Accident: No Hx CT Scan Or MRI Of The Brain: Yes Hx Epilepsy, Convulsions, Seizures, Or Blackouts: No Hx Frequent Or Severe Headaches: No Hx Numbness: No Hx Neurologic Disorder: No Neurologic History Comment: CT in 2014 - Endocrine History Hx Diabetes: No Current Daily Insulin Injections: No Hx Thyroid Problems: Yes Endocrine History Comment: Hypothyroid - Renal/Urologic History Hx Renal Disorders: No Hx Urinary Tract Problems: No - Liver History Hx Hepatic Disorders: No - Cancer History Hx Cancer: No - Hematology History Hx Unexplained Bleeding Of Any Type: No Hx Ease Of Bruising: No Hx Anemia: No - Gastrointestinal History Hx Gastroesophogeal Reflux Disease: No Hx Ulcers: No Hx Hiatal Hernia: No Hx Difficulty Swallowing: No - Musculoskeletal Hisory Hx Chronic Pain: Yes Chronic Pain Location: Back Hx Arthritis: Yes Musculoskeletal History Comment: Takes Celebrex for back arthritis - Opthalmic History Hx Glaucoma: No Visual Assistive Devices: None Hx Opthalmic Disorders: No - Other Health History Physical Disabililty: No Recent Cough, Cold, or Fever: No Significant Weight Loss In The Last 4 Months: No Possible the Patient Might be : No
--- NOTE | 2018-03-23 15:57 | PDHPUP ---
History & Physical Update H&P update statement: This history and physical update is based on an assessment of the patient which was completed after admission or registration (within 24 hours), but prior to the surgery/procedure. H&P update: H&P reviewed & patient examined, no change in patient's condition since H&P completed
[2018-03-23] MEDS ORDERED: ETOMIDATE 20 MG/10 ML VIAL ONE (16:14)
[2018-03-23] MEDS ORDERED: ACETAMINOPHEN 325 MG TAB ONE (17:06)
[2018-03-23] MEDS ORDERED: clonazePAM 1 MG TAB PO ONE (19:00)
[2018-03-23] MEDS: MIRTAZAPINE 15 MG TAB PO SCH (20:51)
[2018-03-24] MEDS: ACETAMINOPHEN 325 MG TAB PO PRN ×2 (04:29→10:12)
[2018-03-24] MEDS: HYDROCODONE/APAP 5/325 TAB PO PRN (05:54)
[2018-03-24] MEDS: LITHIUM CARBONATE 300 MG CAP PO SCH ×2 (07:49→20:32)
[2018-03-24] MEDS: VENLAFAXINE XR 150 MG CAP PO SCH (07:49)
[2018-03-24] MEDS: VENLAFAXINE XR 75 MG CAP PO SCH (07:49)
[2018-03-24] MEDS: clonazePAM 1 MG TAB PO SCH ×2 (07:49→13:43)
[2018-03-24] MEDS: LEVOTHYROXINE 150 MCG TAB PO SCH (10:05)
--- NOTE | 2018-03-24 14:24 | ASMTCMCOM ---
CM Note CM Note Notes: Pt. reports having a "migraine". Pt. stated she may have a migraine due to a "big decrease in Kolopin". Pt. stated she takes imitrex to help with her migraines. Pt. stated her migraine started before ECT yesterday. Pt. stated she had "one suicidal thought this morning". Pt. stated she is not currently suicidal. Pt. stated she has had 12 ECT treatments in the past. Pt. stated she believes she will need six this time. Pt. reports "feel already bit of a difference". Pt. stated she slept till 4:30am, which was a bit better than yesterday. Pt. stated "sleep is a symptom" and stated her sleep will improve as she gets better. Pt. reports getting enough to eat and attending groups. Pt. stated she would like her Klonopin increased to 1.5 mg, adding she lowered it too quickly. Pt. denied SI, HI, AVH and paranoia. Pt. presents as alert, calm, good eye contact, groomed, and cooperative. Staff report pt. sleeping 8 hours and being medication compliant. CC to obtain E[facility] for Dr. Noah Xiong and to schedule follow up appointment Date Signed: 03/24/2018 02:23 PM Electronically Signed By:Anastasiia Shaikh
[2018-03-24] MEDS ORDERED: hydrOXYzine HCL 25 MG TAB PO PRN (16:42)
--- NOTE | 2018-03-24 16:45 | SOAPPROG ---
SOAP Progress Note Assessment/Plan: Assessment: Per Dr. More's note from 03/23/18: Pt presents for initial acute course ECT treatment. States she is "kind of anxious." Discussed again the treatment and overall treatment plan. She is motivated for positive change, but voices ongoing prominent SI. Discussed h/a prophylaxis. Affect is dysphoric, blunted, stable. Mood is "not good." TP is linear. TC reveals no psychosis SI persists. Underwent bilateral ECT without complications. Good first treatment. Continue acute course ECT. WEEKEND PLAN: 03/24/18 16:40 1. Patient says she has had a ONEIL all week. Her ONEIL started "before ECT." She took some Tylenol and [place] this AM with some relief. 2. Patient is also c/o increased anxiety. She has been used to taking Klonopin 1mg PO BID@0900, 1200 at home for several years. Upon admission, she told Dr. More she would like to "get off" the benzo, so her dose was reduced. She is now c/o worsening anxiety, tremors and ONEIL which she thinks are related to benzo w/d. MD agreed to restart Klonopin at 0.5mg BID@, per patient's request. She also has PRN Ativan 0.5mg Q6H. explained that benzos will decrease the effectiveness of ECT and there will need to be a discussion with Dr. More about a reasonable amount of benzo use while she is undergoing acute ECT. The benefit of ECT will be to treat the severe depression which is likely a contributing factor to patient's anxiety. Patient understands this issue will need to be addressed prior to resuming ECT on Monday. 3. Patient admits she is sleeping "better" since admission. She slept 8 hrs last night and reports this is a "good sign" that her mood is improving. 4. Next ECT on Monday Subjective: Patient is well-groomed, wearing sweater and fuzzy house slippers. She attended art group and mindfulness group today. She c/o ONEIL and worsening anxiety. She requests to be back on Klonopin which she has taken "for years" at home. She reports tremor, ONEIL, and rebound anxiety since dose was decreased at admission. MD agreed to continue with lower dose over weekend while she decides exactly how she wants to titrate off benzos which she says is her goal. Objective: Vital Signs Temp Pulse Resp BP Pulse Ox 36.7 C 58 L 14 119/59 L 98 03/24/18 06:00 03/24/18 06:00 03/24/18 06:00 03/24/18 06:00 03/24/18 06:00 03/23/18 03/24/18 03/25/18 05:59 05:59 05:59 Intake Total 1240 Balance 1240 MSE: Affect: Flat Mood: "Anxious" TP: Linear TC: Denies any SI/HI Insight/ Judgment: Fair - Time Spent With Patient Time Spent With Patient: 15" - Pending Discharge Pending Discharge Within 24 Hours: No Pending Discharge Within 48 Hours: No ICD10 Worksheet Patient Problems: Problems Problem Status Onset Depression Acute Suicidal ideation Acute
[2018-03-24] MEDS ORDERED: clonazePAM 1 MG TAB PO ONE (16:56)
[2018-03-24] MEDS: MIRTAZAPINE 15 MG TAB PO SCH (20:32)
[2018-03-25] MEDS: clonazePAM 0.5 MG TAB PO SCH ×2 (08:23→12:31)
[2018-03-25] MEDS: VENLAFAXINE XR 150 MG CAP PO SCH (08:23)
[2018-03-25] MEDS: LITHIUM CARBONATE 300 MG CAP PO SCH ×2 (08:23→20:58)
[2018-03-25] MEDS: VENLAFAXINE XR 75 MG CAP PO SCH (08:23)
[2018-03-25] MEDS: BREXPIPRAZOLE 1 MG TAB PO SCH (08:23)
[2018-03-25] MEDS: LORazepam 0.5 MG TAB PO PRN (08:36)
[2018-03-25] MEDS ORDERED: clonazePAM 0.5 MG TAB PO SCH (09:00)
[2018-03-25] MEDS: LEVOTHYROXINE 150 MCG TAB PO SCH (10:01)
--- NOTE | 2018-03-25 18:12 | SOAPPROG ---
SOAP Progress Note Assessment/Plan: Assessment: Per Dr. More's note from 03/23/18: Pt presents for initial acute course ECT treatment. States she is "kind of anxious." Discussed again the treatment and overall treatment plan. She is motivated for positive change, but voices ongoing prominent SI. Discussed h/a prophylaxis. Affect is dysphoric, blunted, stable. Mood is "not good." TP is linear. TC reveals no psychosis SI persists. Underwent bilateral ECT without complications. Good first treatment. Continue acute course ECT. WEEKEND PLAN: 03/24/18 16:40 1. Patient says she has had a ONEIL all week. Her ONEIL started "before ECT." She took some Tylenol and [place] this AM with some relief. 2. Patient is also c/o increased anxiety. She has been used to taking Klonopin 1mg PO BID@0900, 1200 at home for several years. Upon admission, she told Dr. More she would like to "get off" the benzo, so her dose was reduced. She is now c/o worsening anxiety, tremors and ONEIL which she thinks are related to benzo w/d. MD agreed to restart Klonopin at 0.5mg BID@,12 per patient's request. She also has PRN Ativan 0.5mg Q6H. explained that benzos will decrease the effectiveness of ECT and there will need to be a discussion with Dr. More about a reasonable amount of benzo use while she is undergoing acute ECT. The benefit of ECT will be to treat the severe depression which is likely a contributing factor to patient's anxiety. Patient understands this issue will need to be addressed prior to resuming ECT on Monday. 3. Patient admits she is sleeping "better" since admission. She slept 8 hrs last night and reports this is a "good sign" that her mood is improving. 4. Next ECT on Monday03/25/18 18:08 1. Patient requesting more benzos to help with anxiety. MD reminded patient of her plan to "get off" benzos when she met with Dr. More on 03/22/18, but now she says she's changed her mind. 2. Patient denies ONEIL today. She hasn't needed any PRNs for pain. 3. Patient took Rexulti today after refusing med on Monday. 4. Patient scheduled for ECT tomorrow. 5. Voluntary Subjective: Patient c/o anxiety this AM, took PRN Ativan and Klonopin and said she felt better. She denies any ONEIL today. She reported waking up with feeling of "doom" this AM, but denied any SI/HI. She reports feeling better after taking AM meds, including Rexulti which she had refused on Monday. Patient has mixed feelings about ECT, but agrees it's worth continuing. Objective: Vital Signs Temp Pulse Resp BP Pulse Ox 36.8 C 87 16 145/77 H 100 03/25/18 06:00 03/25/18 06:00 03/25/18 06:00 03/25/18 06:00 03/25/18 06:00 03/24/18 03/25/18 03/26/18 05:59 05:59 05:59 Intake Total 1240 Balance 1240 MSE: Affect: Labile Mood: "Anxious" TP: Linear TC: Denies SI/HI, no paranoia , no delusions Insight/Judgment: Poor - Time Spent With Patient Time Spent With Patient: 15" - Pending Discharge Pending Discharge Within 24 Hours: No Pending Discharge Within 48 Hours: No ICD10 Worksheet Patient Problems: Problems Problem Status Onset Depression Acute Suicidal ideation Acute
[2018-03-25] MEDS: MIRTAZAPINE 15 MG TAB PO SCH (20:58)
[2018-03-26] MEDS ORDERED: CITRIC ACID/SODIUM CITRATE 30 ML UDCUP PO PRN (07:24)
[2018-03-26] MEDS ORDERED: NS 1,000 ML IV PRN (07:24)
[2018-03-26] MEDS ORDERED: ONDANSETRON DISINTEGRATING 4 MG TAB PO PRN (07:24)
[2018-03-26] MEDS ORDERED: CITRIC ACID/SODIUM CITRATE 30 ML UDCUP ONE (08:08)
[2018-03-26] MEDS ORDERED: ONDANSETRON DISINTEGRATING 4 MG TAB ONE (08:08)
[2018-03-26] MEDS: NS 1,000 ML IV PRN (08:20)
[2018-03-26] MEDS ORDERED: fentaNYL 100 MCG/2 ML INJ ONE (08:41)
[2018-03-26] MEDS ORDERED: MIDAZOLAM 2 MG/2 ML VIAL ONE (08:43)
--- NOTE | 2018-03-26 08:44 | PDECTPN ---
ECT Progress Note Patient Problems: Problems Problem Status Onset Code Depression Acute F32.9 Suicidal ideation Acute R45.851 Date: 03/26/18 ECT provider: Murtaza More Anesthesia: Jessica Barron Stimulus dose (%): 40 Pulse width: 0.5 ECT EMG (sec): 25 ECT EEG (sec): 27 ECT treatment type: bilateral QIDS-SR Total Score: 19 QIDS-SR Question #12 Score: 2 MMSE Total Score (Max = 21): 21 Next ECT date: 03/28/18 Next ECT time: 07:30 O/P psychiatrist follow up with DrIsabella: Noah Xiong O/P psychiatrist follow up: direct communication Home medications: Medication Instructions Recorded Brexpiprazole [Rexulti 1 MG (*)] 1 mg PO Q2D 03/20/18 Levothyroxine [Synthroid 150 mcg 150 mcg PO DAILY06 03/20/18 (*)] [place] Carbonate [[place] 300 mg PO TID 03/20/18 Carbonate Cap 300 mg (*)] Mirtazapine 15 mg PO HS 03/20/18 Venlafaxine HCl [Venlafaxine HCl 75 mg PO DAILY 03/20/18 ER] Venlafaxine HCl [Venlafaxine HCl 150 mg PO DAILY 03/20/18 ER] celeCOXIB [Celebrex (*)] 200 mg PO DAILY 03/20/18 clonazePAM [Clonazepam] 1 mg PO BID@09,12 03/20/18 Medication review: completed Current treatment plan: acute phase Treatment plan frequency: 3 times per week ECT narrative: Pt presents to continue acute course ECT treatment. Reports some jaw discomfort and a dry mouth after last treatment, no other issues. Was less tearful this weekend with "a little boost in my mood." Anxiety increased after decreasing clonazepam. Taking PRN lorazepam. Affect is dysphoric, blunted, stable. Mood is "not good." TP is linear. TC reveals no psychosis SI persists. Underwent bilateral ECT without complication. Good first treatment. Continue acute course ECT.
--- NOTE | 2018-03-26 08:49 | PDANEPAE ---
ECT Pre Anesthetic Evaluation Allergies/Adverse Reactions: stan seeds Allergy (Uncoded 03/20/18 19:08) Patient ID confirmed: Yes H&P reviewed: Yes Pre-anesthetic history reviewed: Yes Heart: regular rate and rhythym, no murmur, rub, or gallop Lungs: no respiratory distress, no rales or rhonchi Mallampati Score: Class 1 ASA Status: II Home Medications: Medication Instructions Recorded Brexpiprazole [Rexulti 1 MG (*)] 1 mg PO Q2D 03/20/18 Levothyroxine [Synthroid 150 mcg 150 mcg PO DAILY06 03/20/18 (*)] [place] Carbonate [[place] 300 mg PO TID 03/20/18 Carbonate Cap 300 mg (*)] Mirtazapine 15 mg PO HS 03/20/18 Venlafaxine HCl [Venlafaxine HCl 75 mg PO DAILY 03/20/18 ER] Venlafaxine HCl [Venlafaxine HCl 150 mg PO DAILY 03/20/18 ER] celeCOXIB [Celebrex (*)] 200 mg PO DAILY 03/20/18 clonazePAM [Clonazepam] 1 mg PO BID@09,12 03/20/18 Medication review: completed Patient interviewed: Yes Patient examined: Yes Anesthetic plan discussed with patient: Yes Anesthetic risks discussed with patient: Yes ECT Pre-Anesthetic History - Height & Weight Height: 167.64 cm Weight: 66.678 kg BMI: 23.74 - Anesthesia History Hx Anesthesia Complications (with details): None Family Hx Anesthesia Complications: None - Medications In the Past 6 Months the Patient Has Taken: Antibiotics, Arthritis Medication, Thyroid Medication - Tobacco/Alcohol/Drug Use Smoking Status: Never smoked Alcohol Use: No - Prior Surgeries/Hospitalizations Prior Surgeries: None in last year Prior Medical Hospitalizations: 2015 - Pulmonary History ECT Hx Asthma: No Hx Abnormal Chest X-Ray: No Hx Oxygen in Use at Home: No - Cardiovascular History Hx Hypertension: No Currently Uses Hypertension Medication: No Hx Arrhythmias: No Hx Palpitations: No Hx Chest Pain: No Hx Coronary Artery / Peripheral Vascular Disease: No Hx Blood Clot: No - Neurologic History Hx Cerebrovascular Accident: No Hx CT Scan Or MRI Of The Brain: Yes Hx Epilepsy, Convulsions, Seizures, Or Blackouts: No Hx Frequent Or Severe Headaches: No Hx Numbness: No Hx Neurologic Disorder: No Neurologic History Comment: CT in 2015 - Endocrine History Hx Diabetes: No Current Daily Insulin Injections: No Hx Thyroid Problems: Yes Endocrine History Comment: Hypothyroid - Renal/Urologic History Hx Renal Disorders: No Hx Urinary Tract Problems: No - Liver History Hx Hepatic Disorders: No - Cancer History Hx Cancer: No - Hematology History Hx Unexplained Bleeding Of Any Type: No Hx Ease Of Bruising: No Hx Anemia: No - Gastrointestinal History Hx Gastroesophogeal Reflux Disease: No Hx Ulcers: No Hx Hiatal Hernia: No Hx Difficulty Swallowing: No - Musculoskeletal Hisory Hx Chronic Pain: Yes Chronic Pain Location: Back Hx Arthritis: Yes Musculoskeletal History Comment: Takes Celebrex for back arthritis - Opthalmic History Hx Glaucoma: No Visual Assistive Devices: None Hx Opthalmic Disorders: No - Other Health History Physical Disabililty: No Recent Cough, Cold, or Fever: No Significant Weight Loss In The Last 4 Months: No Possible the Patient Might be : No
--- NOTE | 2018-03-26 08:57 | POSTANESTH ---
Post Anesthetic Evaluation Cardiovascular Status: Normal, Stable, Similar to Pre-Op Cond Respiratory Status: Normal, Stable, Similar to Pre-op Cond. Level of Consciousness/Mental Status: Unconscious Pain Control: Adequate, Prn Tx Ordered Nausea/Vomiting Control: Adequate, Prn Tx Ordered Complications Possibly Related to Anesthesia: None Noted
[2018-03-26] MEDS ORDERED: PROPRANOLOL HCL 10 MG TAB ONE (09:11)
[2018-03-26] MEDS ORDERED: PROPRANOLOL HCL 10 MG TAB PO ONE (09:15)
[2018-03-26] MEDS: VENLAFAXINE XR 75 MG CAP PO SCH (09:49)
[2018-03-26] MEDS: LEVOTHYROXINE 150 MCG TAB PO SCH (09:49)
[2018-03-26] MEDS: LITHIUM CARBONATE 300 MG CAP PO SCH ×2 (09:49→20:59)
[2018-03-26] MEDS: VENLAFAXINE XR 150 MG CAP PO SCH (09:49)
[2018-03-26] MEDS: clonazePAM 0.5 MG TAB PO SCH ×2 (09:50→13:55)
[2018-03-26] MEDS: LORazepam 0.5 MG TAB PO PRN (11:14)
[2018-03-26] MEDS ORDERED: PROPRANOLOL HCL 10 MG TAB PO SCH (16:00)
[2018-03-26] MEDS: MIRTAZAPINE 15 MG TAB PO SCH (20:58)
[2018-03-27] MEDS: LEVOTHYROXINE 150 MCG TAB PO SCH (08:25)
[2018-03-27] MEDS: BREXPIPRAZOLE 1 MG TAB PO SCH (08:26)
[2018-03-27] MEDS: VENLAFAXINE XR 75 MG CAP PO SCH (08:26)
[2018-03-27] MEDS: VENLAFAXINE XR 150 MG CAP PO SCH (08:26)
[2018-03-27] MEDS: LITHIUM CARBONATE 300 MG CAP PO SCH (08:26)
[2018-03-27] MEDS: clonazePAM 0.5 MG TAB PO SCH ×2 (08:26→12:50)
--- NOTE | 2018-03-27 16:32 | SOAPPROG ---
[facility] Progress Note Assessment/Plan: Assessment: Plan: 03/27/18 16:31 Mood: Some early improvement. CCM. Subjective: Pt seen, discussed with staff. Reports feeling "better" today. States, "My mood is better but my anxiety is still really high." Discussed again expected course of treatment. Hope to see continued improvements in mood and decreased anxiety soon. Cognition is good and notes no nausea or h/a's. Objective: Vital Signs Temp Pulse Resp BP Pulse Ox 36.9 C 70 16 115/71 96 03/27/18 06:00 03/27/18 06:00 03/27/18 06:00 03/27/18 06:00 03/27/18 06:00 03/26/18 03/27/18 03/28/18 05:59 05:59 05:59 Intake Total 1240 Balance 1240 - Time Spent With Patient Time Spent With Patient: 25" ICD10 Worksheet Patient Problems: Problems Problem Status Onset Depression Acute Suicidal ideation Acute
[2018-03-27] MEDS: MIRTAZAPINE 15 MG TAB PO SCH (20:41)
[2018-03-28] MEDS ORDERED: CITRIC ACID/SODIUM CITRATE 30 ML UDCUP PO PRN (05:00)
[2018-03-28] MEDS ORDERED: NS 1,000 ML IV PRN (05:00)
[2018-03-28] MEDS ORDERED: ONDANSETRON DISINTEGRATING 4 MG TAB PO PRN (05:00)
[2018-03-28] MEDS ORDERED: CITRIC ACID/SODIUM CITRATE 30 ML UDCUP ONE (07:08)
[2018-03-28] MEDS ORDERED: ONDANSETRON DISINTEGRATING 4 MG TAB ONE (07:08)
[2018-03-28] MEDS: PROPRANOLOL HCL 10 MG TAB PO PRN (07:58)
[2018-03-28] MEDS ORDERED: PROPRANOLOL HCL 10 MG TAB PO PRN (07:59)
[2018-03-28] MEDS ORDERED: PROPRANOLOL HCL 10 MG TAB ONE (08:00)
--- NOTE | 2018-03-28 08:00 | PDECTPN ---
ECT Progress Note Patient Problems: Problems Problem Status Onset Code Depression Acute F32.9 Suicidal ideation Acute R45.851 Date: 03/28/18 ECT provider: Murtaza More Anesthesia: Jessica Barron Stimulus dose (%): 45 Pulse width: 0.5 ECT EMG (sec): 27 ECT EEG (sec): 31 ECT treatment type: bilateral QIDS-SR Total Score: 13 QIDS-SR Question #12 Score: 1 MMSE Total Score (Max = 21): 21 Next ECT date: 03/30/18 Next ECT time: 08:00 O/P psychiatrist follow up with DrIsabella: Noah Xiong O/P psychiatrist follow up: direct communication Home medications: Medication Instructions Recorded Brexpiprazole [Rexulti 1 MG (*)] 1 mg PO Q2D 03/20/18 Levothyroxine [Synthroid 150 mcg 150 mcg PO DAILY06 03/20/18 (*)] [place] Carbonate [[place] 300 mg PO TID 03/20/18 Carbonate Cap 300 mg (*)] Mirtazapine 15 mg PO HS 03/20/18 Venlafaxine HCl [Venlafaxine HCl 75 mg PO DAILY 03/20/18 ER] Venlafaxine HCl [Venlafaxine HCl 150 mg PO DAILY 03/20/18 ER] celeCOXIB [Celebrex (*)] 200 mg PO DAILY 03/20/18 clonazePAM [Clonazepam] 1 mg PO BID@09,12 03/20/18 Medication review: completed Current treatment plan: acute phase Treatment plan frequency: 3 times per week ECT narrative: Pt presents to continue acute course ECT treatment. Reports continued gradual improvement in mood with ongoing anxiety. Slept well last night, but "woke up with terrible anxiety." No h/a's or nausea after last treatment. Affect is dysphoric, anxious, stable; less blunted. Mood is "anxious." TP is linear. TC reveals no psychosis SI persists. Underwent bilateral ECT without complication. Doing well. Continue acute course ECT.
--- NOTE | 2018-03-28 08:01 | PDANEPAE ---
ECT Pre Anesthetic Evaluation Allergies/Adverse Reactions: stan seeds Allergy (Uncoded 03/20/18 19:08) Patient ID confirmed: Yes H&P reviewed: Yes Pre-anesthetic history reviewed: Yes Heart: regular rate and rhythym, no murmur, rub, or gallop Lungs: no respiratory distress, no rales or rhonchi, clear to auscultation Mallampati Score: Class 1 ASA Status: II Home Medications: Medication Instructions Recorded Brexpiprazole [Rexulti 1 MG (*)] 1 mg PO Q2D 03/20/18 Levothyroxine [Synthroid 150 mcg 150 mcg PO DAILY06 03/20/18 (*)] [place] Carbonate [[place] 300 mg PO TID 03/20/18 Carbonate Cap 300 mg (*)] Mirtazapine 15 mg PO HS 03/20/18 Venlafaxine HCl [Venlafaxine HCl 75 mg PO DAILY 03/20/18 ER] Venlafaxine HCl [Venlafaxine HCl 150 mg PO DAILY 03/20/18 ER] celeCOXIB [Celebrex (*)] 200 mg PO DAILY 03/20/18 clonazePAM [Clonazepam] 1 mg PO BID@,12 03/20/18 Medication review: completed Patient interviewed: Yes Patient examined: Yes Anesthetic plan discussed with patient: Yes Anesthetic risks discussed with patient: Yes ECT Pre-Anesthetic History - Height & Weight Height: 167.64 cm Weight: 66.678 kg BMI: 23.74 - Anesthesia History Hx Anesthesia Complications (with details): None Family Hx Anesthesia Complications: None - Medications In the Past 6 Months the Patient Has Taken: Antibiotics, Arthritis Medication, Thyroid Medication - Tobacco/Alcohol/Drug Use Smoking Status: Never smoked Alcohol Use: No - Prior Surgeries/Hospitalizations Prior Surgeries: None in last year Prior Medical Hospitalizations: 2015 - Pulmonary History ECT Hx Asthma: No Hx Abnormal Chest X-Ray: No Hx Oxygen in Use at Home: No - Cardiovascular History Hx Hypertension: No Currently Uses Hypertension Medication: No Hx Arrhythmias: No Hx Palpitations: No Hx Chest Pain: No Hx Coronary Artery / Peripheral Vascular Disease: No Hx Blood Clot: No - Neurologic History Hx Cerebrovascular Accident: No Hx CT Scan Or MRI Of The Brain: Yes Hx Epilepsy, Convulsions, Seizures, Or Blackouts: No Hx Frequent Or Severe Headaches: No Hx Numbness: No Hx Neurologic Disorder: No Neurologic History Comment: CT in 2015 - Endocrine History Hx Diabetes: No Current Daily Insulin Injections: No Hx Thyroid Problems: Yes Endocrine History Comment: Hypothyroid - Renal/Urologic History Hx Renal Disorders: No Hx Urinary Tract Problems: No - Liver History Hx Hepatic Disorders: No - Cancer History Hx Cancer: No - Hematology History Hx Unexplained Bleeding Of Any Type: No Hx Ease Of Bruising: No Hx Anemia: No - Gastrointestinal History Hx Gastroesophogeal Reflux Disease: No Hx Ulcers: No Hx Hiatal Hernia: No Hx Difficulty Swallowing: No - Musculoskeletal Hisory Hx Chronic Pain: Yes Chronic Pain Location: Back Hx Arthritis: Yes Musculoskeletal History Comment: Takes Celebrex for back arthritis - Opthalmic History Hx Glaucoma: No Visual Assistive Devices: None Hx Opthalmic Disorders: No - Other Health History Physical Disabililty: No Recent Cough, Cold, or Fever: No Significant Weight Loss In The Last 4 Months: No Possible the Patient Might be : No
[2018-03-28] MEDS ORDERED: ESMOLOL HCL 100 MG/10 ML VIAL IV ONE (08:02)
[2018-03-28] MEDS ORDERED: MIDAZOLAM 2 MG/2 ML VIAL ONE (08:02)
[2018-03-28] MEDS ORDERED: fentaNYL 100 MCG/2 ML INJ ONE (08:02)
[2018-03-28] MEDS ORDERED: ONDANSETRON 4 MG/2 ML VIAL ONE (08:03)
[2018-03-28] MEDS ORDERED: KETOROLAC 30 MG/1 ML SDV ONE (08:03)
[2018-03-28] MEDS: VENLAFAXINE XR 75 MG CAP PO SCH (09:25)
[2018-03-28] MEDS: VENLAFAXINE XR 150 MG CAP PO SCH (09:26)
[2018-03-28] MEDS: LITHIUM CARBONATE 300 MG CAP PO SCH ×2 (09:27→20:14)
[2018-03-28] MEDS: BREXPIPRAZOLE 1 MG TAB PO SCH (12:20)
[2018-03-28] MEDS: LEVOTHYROXINE 150 MCG TAB PO SCH (13:51)
[2018-03-28] MEDS: clonazePAM 0.5 MG TAB PO SCH (13:51)
[2018-03-28] MEDS: MIRTAZAPINE 15 MG TAB PO SCH (20:14)
[2018-03-29] MEDS: BREXPIPRAZOLE 1 MG TAB PO SCH (07:55)
[2018-03-29] MEDS: VENLAFAXINE XR 75 MG CAP PO SCH (07:55)
[2018-03-29] MEDS: clonazePAM 0.5 MG TAB PO SCH (07:55)
[2018-03-29] MEDS: LITHIUM CARBONATE 300 MG CAP PO SCH (07:55)
[2018-03-29] MEDS: VENLAFAXINE XR 150 MG CAP PO SCH (07:55)
[2018-03-29] MEDS: LEVOTHYROXINE 150 MCG TAB PO SCH (09:54)
[2018-03-29] MEDS ORDERED: clonazePAM 0.5 MG TAB PO ONE (14:15)
--- NOTE | 2018-03-29 16:23 | SOAPPROG ---
[facility] Progress Note Assessment/Plan: Assessment: Plan: 03/27/18 16:31 Mood: Some early improvement. CCM. 03/29/18 16:22 Mood: Continued improvement. CCM. Subjective: Pt seen, discussed with staff. She reports improved mood and anxiety since yesterday. Remains confident ECT will help her. Discussed possibility of transitioning to outpatient treatment when she is feeling safe. She states this is improving but that she needs more time. Objective: Vital Signs Temp Pulse Resp BP Pulse Ox 36.9 C 69 14 118/72 97 03/29/18 06:00 03/29/18 06:00 03/29/18 06:00 03/29/18 06:00 03/29/18 06:00 03/28/18 03/29/18 03/30/18 05:59 05:59 05:59 Intake Total 1180 Balance 1180 MSE: Calm, interactive. Affect is brighter, less anxious. Mood is "better." TP is linear. TC reveals no psychosis. SI is "much better." - Time Spent With Patient Time Spent With Patient: 25" ICD10 Worksheet Patient Problems: Problems Problem Status Onset Depression Acute Suicidal ideation Acute
[2018-03-29] MEDS: MIRTAZAPINE 15 MG TAB PO SCH (19:39)
[2018-03-30] MEDS ORDERED: CITRIC ACID/SODIUM CITRATE 30 ML UDCUP PO PRN (04:00)
[2018-03-30] MEDS ORDERED: NS 1,000 ML IV PRN (04:00)
[2018-03-30] MEDS ORDERED: ONDANSETRON DISINTEGRATING 4 MG TAB PO PRN (04:00)
[2018-03-30] MEDS: PROPRANOLOL HCL 10 MG TAB PO PRN (06:53)
[2018-03-30] MEDS ORDERED: ONDANSETRON DISINTEGRATING 4 MG TAB ONE (07:45)
[2018-03-30] MEDS ORDERED: CITRIC ACID/SODIUM CITRATE 30 ML UDCUP ONE (07:45)
[2018-03-30] MEDS ORDERED: fentaNYL 100 MCG/2 ML INJ ONE (08:22)
[2018-03-30] MEDS ORDERED: MIDAZOLAM 2 MG/2 ML VIAL ONE (08:22)
[2018-03-30] MEDS ORDERED: GLYCOPYRROLATE 0.2 MG/1 ML VIAL ONE (08:23)
[2018-03-30] MEDS ORDERED: KETOROLAC 30 MG/1 ML SDV ONE (08:24)
--- NOTE | 2018-03-30 08:26 | PDECTPN ---
ECT Progress Note Patient Problems: Problems Problem Status Onset Code Depression Acute F32.9 Suicidal ideation Acute R45.851 Date: 03/30/18 ECT provider: Murtaza More Anesthesia: Jessica Barron Stimulus dose (%): 50 Pulse width: 0.5 ECT EMG (sec): 12 ECT EEG (sec): 21 ECT treatment type: bilateral QIDS-SR Total Score: 11 QIDS-SR Question #12 Score: 0 MMSE Total Score (Max = 21): 21 Next ECT date: 04/02/18 Next ECT time: 07:00 O/P psychiatrist follow up with Dr.: Noah Xiong O/P psychiatrist follow up: direct communication Home medications: Medication Instructions Recorded Brexpiprazole [Rexulti 1 MG (*)] 1 mg PO Q2D 03/20/18 Levothyroxine [Synthroid 150 mcg 150 mcg PO DAILY06 03/20/18 (*)] [place] Carbonate [[place] 300 mg PO TID 03/20/18 Carbonate Cap 300 mg (*)] Mirtazapine 15 mg PO HS 03/20/18 Venlafaxine HCl [Venlafaxine HCl 75 mg PO DAILY 03/20/18 ER] Venlafaxine HCl [Venlafaxine HCl 150 mg PO DAILY 03/20/18 ER] celeCOXIB [Celebrex (*)] 200 mg PO DAILY 03/20/18 clonazePAM [Clonazepam] 1 mg PO BID@09,12 03/20/18 Medication review: completed Current treatment plan: acute phase Treatment plan frequency: 3 times per week ECT narrative: Pt presents to continue acute course ECT treatment. Reports improved mood and anxiety. Slept well last night. Feels calmer with propranolol. No c/o's. Cognition is good. Affect is brighter today, less anxious, stable; less blunted. Mood is "anxious. " TP is linear. TC reveals no psychosis SI persists. Underwent bilateral ECT without complication. Doing well. Continue acute course ECT.
--- NOTE | 2018-03-30 08:35 | PDANEPAE ---
ECT Pre Anesthetic Evaluation Allergies/Adverse Reactions: stan seeds Allergy (Uncoded 03/20/18 19:08) Patient ID confirmed: Yes H&P reviewed: Yes Pre-anesthetic history reviewed: Yes Heart: regular rate and rhythym, no murmur, rub, or gallop Lungs: no respiratory distress, no rales or rhonchi Mallampati Score: Class 1 ASA Status: II Home Medications: Medication Instructions Recorded Brexpiprazole [Rexulti 1 MG (*)] 1 mg PO Q2D 03/20/18 Levothyroxine [Synthroid 150 mcg 150 mcg PO DAILY06 03/20/18 (*)] [place] Carbonate [[place] 300 mg PO TID 03/20/18 Carbonate Cap 300 mg (*)] Mirtazapine 15 mg PO HS 03/20/18 Venlafaxine HCl [Venlafaxine HCl 75 mg PO DAILY 03/20/18 ER] Venlafaxine HCl [Venlafaxine HCl 150 mg PO DAILY 03/20/18 ER] celeCOXIB [Celebrex (*)] 200 mg PO DAILY 03/20/18 clonazePAM [Clonazepam] 1 mg PO BID@09,12 03/20/18 Medication review: completed Patient interviewed: Yes Patient examined: Yes Anesthetic plan discussed with patient: Yes ECT Pre-Anesthetic History - Height & Weight Height: 167.64 cm Weight: 66.678 kg BMI: 23.74 - Anesthesia History Hx Anesthesia Complications (with details): None Family Hx Anesthesia Complications: None - Medications In the Past 6 Months the Patient Has Taken: Antibiotics, Arthritis Medication, Thyroid Medication - Tobacco/Alcohol/Drug Use Smoking Status: Never smoked Alcohol Use: No - Prior Surgeries/Hospitalizations Prior Surgeries: None in last year Prior Medical Hospitalizations: 2014 - Pulmonary History ECT Hx Asthma: No Hx Abnormal Chest X-Ray: No Hx Oxygen in Use at Home: No - Cardiovascular History Hx Hypertension: No Currently Uses Hypertension Medication: No Hx Arrhythmias: No Hx Palpitations: No Hx Chest Pain: No Hx Coronary Artery / Peripheral Vascular Disease: No Hx Blood Clot: No - Neurologic History Hx Cerebrovascular Accident: No Hx CT Scan Or MRI Of The Brain: Yes Hx Epilepsy, Convulsions, Seizures, Or Blackouts: No Hx Frequent Or Severe Headaches: No Hx Numbness: No Hx Neurologic Disorder: No Neurologic History Comment: CT in 2014 - Endocrine History Hx Diabetes: No Current Daily Insulin Injections: No Hx Thyroid Problems: Yes Endocrine History Comment: Hypothyroid - Renal/Urologic History Hx Renal Disorders: No Hx Urinary Tract Problems: No - Liver History Hx Hepatic Disorders: No - Cancer History Hx Cancer: No - Hematology History Hx Unexplained Bleeding Of Any Type: No Hx Ease Of Bruising: No Hx Anemia: No - Gastrointestinal History Hx Gastroesophogeal Reflux Disease: No Hx Ulcers: No Hx Hiatal Hernia: No Hx Difficulty Swallowing: No - Musculoskeletal Hisory Hx Chronic Pain: Yes Chronic Pain Location: Back Hx Arthritis: Yes Musculoskeletal History Comment: Takes Celebrex for back arthritis - Opthalmic History Hx Glaucoma: No Visual Assistive Devices: None Hx Opthalmic Disorders: No - Other Health History Physical Disabililty: No Recent Cough, Cold, or Fever: No Significant Weight Loss In The Last 4 Months: No Possible the Patient Might be : No
[2018-03-30] MEDS: VENLAFAXINE XR 150 MG CAP PO SCH (09:27)
[2018-03-30] MEDS: BREXPIPRAZOLE 1 MG TAB PO SCH (09:27)
[2018-03-30] MEDS: VENLAFAXINE XR 75 MG CAP PO SCH (09:27)
[2018-03-30] MEDS ORDERED: clonazePAM 0.5 MG TAB PO ONE (10:15)
[2018-03-30] MEDS: LEVOTHYROXINE 150 MCG TAB PO SCH (11:43)
--- NOTE | 2018-03-30 13:21 | ASMTCMCOM ---
CM Note CM Note Notes: Pt. reports feeling "tired". Pt. stated ECT went "okay" adding no headache and no nausea. Pt. reports sleeping "good". Pt. stated she is hungry but can wait for lunch. Pt. reports no issues with her current medications. Pt. reports attending groups. Pt. denied having any issues while on the unit. Pt. stated she is willing to stay through next week to continue getting ECT treatments. Pt. stated she wants to "wean off Klonopin" adding she would like to be completely off if by her discharge. Pt. denied SI, HI, AVH and paranoia. Pt. presents as alert, calm, groomed, polite, good eye contact, and cooperative. Staff report pt sleeping 10 hours and being medication compliant. CC to learn pt's intended length of stay and to secure follow up with pt's provider. Date Signed: 03/30/2018 01:20 PM Electronically Signed By:Anastasiia Shaikh
--- NOTE | 2018-03-30 14:03 | ASMTCMCOM ---
CM Note CM Note Notes: Pt. reports feeling "anxious". Pt. stated she has ECT at 3:15pm today, adding it is "hard to fast" adding she suffered from anorexia in the past. Pt. stated she is also feeling anxious because she was not able to take her Klonopin prior to ECT. Pt. stated she woke up several times last night due to "some people acting out". Pt. stated she "feel like I need more sleep". Pt. stated this is the second time she will be getting ECT. Pt. reports getting enough to eat and attending groups. Pt. stated is is "facinating to see a schizophrenic" adding she "don't know about going to groups today" due to her anxiety. Pt. denied SI, HI, AVH and paranoia. Pt. presents as alert, nervous, good eye contact, bit distracted and cooperative. Staff report pt. sleeping 7.5 hours and being medication compliant. Staff report pt. rating her SI a 4/10 today. CC to request [facility] for Dr. Jose Xiong and to make a follow up appointment when Dr. Xiong returns. Date Signed: 03/23/2018 12:49 PM Electronically Signed By:Anastasiia Shaikh
[2018-03-30] MEDS: clonazePAM 0.5 MG TAB PO SCH (14:04)
[2018-03-30] MEDS: MIRTAZAPINE 15 MG TAB PO SCH (19:02)
[2018-03-30] MEDS: LITHIUM CARBONATE 300 MG CAP PO SCH (19:02)
[2018-03-31] MEDS: VENLAFAXINE XR 75 MG CAP PO SCH (08:10)
[2018-03-31] MEDS: VENLAFAXINE XR 150 MG CAP PO SCH (08:10)
[2018-03-31] MEDS: clonazePAM 0.5 MG TAB PO SCH ×2 (08:10→14:35)
[2018-03-31] MEDS: LITHIUM CARBONATE 300 MG CAP PO SCH ×2 (08:11→19:33)
[2018-03-31] MEDS: BREXPIPRAZOLE 1 MG TAB PO SCH (08:11)
[2018-03-31] MEDS: LEVOTHYROXINE 150 MCG TAB PO SCH (10:45)
--- NOTE | 2018-03-31 14:26 | ASMTCMCOM ---
CM Note CM Note Notes: Pt. reports feeling "okay". Pt. stated she slept "good". Pt. stated she would like to be off Klonopin by the time she discharges. Pt. reports no issues from ECT yesterday. Pt. stated she could't remember if she attended groups yesterday. Pt. denied SI, HI and AVH. Pt. reports "little bit" of paranoia, about "that I can't remember". Pt. asked how many more ECT treatments will she have. Pt. presents as alert, calm, somewhat flat, good eye contact, and cooperative. Staff report pt. sleeping 10 hours and being medication compliant. Pt. is scheduled for ECT on Sunday 04/02 Date Signed: 03/31/2018 02:26 PM Electronically Signed By:Anastasiia Shaikh
--- NOTE | 2018-03-31 18:00 | SOAPPROG ---
SOAP Progress Note Assessment/Plan: Assessment: Per Dr. More's note from 03/29/18: 03/27/18 16:31 Mood: Some early improvement. CCM. 03/29/18 16:22 Mood: Continued improvement. CCM. Subjective: Pt seen, discussed with staff. She reports improved mood and anxiety since yesterday. Remains confident ECT will help her. Discussed possibility of transitioning to outpatient treatment when she is feeling safe. She states this is improving but that she needs more time. WEEKEND PLAN: 03/31/18 17:57 1. Patient told staff she wants MD to taper her off benzos. Her goals is to be "completely off" by the time she leaves hospital. MD reminds patient that they had this exact same discussion last weekend and patient changed her mind several times. MD does not recommend making any changes while she is undergoing acute ECT, but talk to outpatient provider once she is stable and come up with plan for tapering off benzos. 2. Patient would like to leave hospital as soon as possible, but has no way to return for outpatient ECT since she lives in [place]. 3. No med changes recommended. 4. Voluntary Subjective: Patient presents less emotionally labile than last weekend. She has brighter affect and is more hopeful about good outcome with ECT. She wants to return home [place], but understands it is more convenient for her to stay in hospital while getting acute ECT since she lives so far away. She denies any SI/HI. Objective: Vital Signs Temp Pulse Resp BP Pulse Ox 36.9 C 96 14 109/60 80 L 03/31/18 06:00 03/31/18 06:00 03/31/18 06:00 03/31/18 06:00 03/31/18 06:00 03/30/18 03/31/18 04/01/18 05:59 05:59 05:59 Intake Total 800 Balance 800 MSE: Affect: Brighter Mood: "Better" TP: Linear TC: Denies SI/HI Insight/ Judgment: Improved - Time Spent With Patient Time Spent With Patient: 15" - Pending Discharge Pending Discharge Within 24 Hours: No Pending Discharge Within 48 Hours: No ICD10 Worksheet Patient Problems: Problems Problem Status Onset Depression Acute Suicidal ideation Acute
[2018-03-31] MEDS: MIRTAZAPINE 15 MG TAB PO SCH (19:33)
[2018-04-01] MEDS: VENLAFAXINE XR 75 MG CAP PO SCH (08:19)
[2018-04-01] MEDS: VENLAFAXINE XR 150 MG CAP PO SCH (08:19)
[2018-04-01] MEDS: BREXPIPRAZOLE 1 MG TAB PO SCH (08:19)
[2018-04-01] MEDS: clonazePAM 0.5 MG TAB PO SCH ×2 (08:19→14:28)
[2018-04-01] MEDS: LITHIUM CARBONATE 300 MG CAP PO SCH ×2 (08:26→20:17)
[2018-04-01] MEDS: LEVOTHYROXINE 150 MCG TAB PO SCH (11:13)
--- NOTE | 2018-04-01 11:39 | ASMTCMCOM ---
CM Note CM Note Notes: Pt. reports feeling "okay". Pt. stated she slept "good". Pt. reports getting enough to eat and attending groups. Pt. stated she did not meet with the MD yesterday to decrease her Klonopin. Pt. stated she skipped a scheduled dose yesterday to begin decreasing her use of Klonopin. Pt. stated she has ECT on Monday, Monday and Monday at 7:00am each day. Pt. denied SI, HI, and AVH. Pt. reports paranoia about "can feel I haven't been taking Klonopin" and "my memory". Pt. stated she is "just being paranoid". Pt. presents as alert, calm, somewhat flat affect, good eye contact, groomed, and cooperative. Staff report pt. sleeping 9 hours and being medication compliant. Pt. is scheduled for ECT on Monday at 7am. CC to confirm pt's length of stay and coordinate follow up appointment with Dr. Xiong. Date Signed: 04/01/2018 11:38 AM Electronically Signed By:Anastasiia Shaikh
--- NOTE | 2018-04-01 16:04 | SOAPPROG ---
SOANANYA Progress Note Assessment/Plan: Assessment: Per Dr. More's note from 03/29/18: 03/27/18 16:31 Mood: Some early improvement. CCM. 03/29/18 16:22 Mood: Continued improvement. CCM. Subjective: Pt seen, discussed with staff. She reports improved mood and anxiety since yesterday. Remains confident ECT will help her. Discussed possibility of transitioning to outpatient treatment when she is feeling safe. She states this is improving but that she needs more time. WEEKEND PLAN: 03/31/18 17:57 1. Patient told staff she wants MD to taper her off benzos. Her goals is to be "completely off" by the time she leaves hospital. MD reminds patient that they had this exact same discussion last weekend and patient changed her mind several times. MD does not recommend making any changes while she is undergoing acute ECT, but talk to outpatient provider once she is stable and come up with plan for tapering off benzos. 2. Patient would like to leave hospital as soon as possible, but has no way to return for outpatient ECT since she lives in [place]. 3. No med changes recommended. 4. Voluntary 04/01/18 16:00 1. MD had long conversation with patient about benzos. Patient again decided she wants to taper off meds. MD explained that the primary focus of her inpatient stay is treating her depression with ECT. Patient states she would like to decide how much klonopin to take each day. Today she decided to refuse both scheduled doses, and says she feels "fine." MD advised continuing to take benzos and work on gradual taper once her depression is stable and she can follow up with her outpatient provider. Patient said she'd like to take klonopin only "when I want to." 2. Patient agreed to stay through week for ECT. She is concerned how she will be able to do maintenance ECT after she returns home. 3. Next ECT on Monday. Subjective: Patient is well-groomed and appropriately dressed. She told MD she didn't take any klonopin today and feels "fine." She added maybe she is a little more "easily startled" but denies any panic or anxiety. She says she feels her mood has been "more stable" since her admission. She also reports less tearfulness and mood lability. She denies any SI/HI. Objective: Vital Signs Temp Pulse Resp BP Pulse Ox 36.8 C 77 14 129/60 H 96 04/01/18 06:00 04/01/18 06:00 04/01/18 06:00 04/01/18 06:00 04/01/18 06:00 03/31/18 04/01/18 04/02/18 05:59 05:59 05:59 Intake Total 800 Balance 800 MSE: Affect: Euthymic Mood: "Stable" TP: Linear TC: Denies any SI/HI Insight /Judgment: Poor a/e/b desire to stop her klonopin despite MD's recommendation to wait to taper off gradually after she's no longer in hospital - Time Spent With Patient Time Spent With Patient: 25" - Pending Discharge Pending Discharge Within 24 Hours: No Pending Discharge Within 48 Hours: No ICD10 Worksheet Patient Problems: Problems Problem Status Onset Depression Acute Suicidal ideation Acute
[2018-04-01] MEDS: MIRTAZAPINE 15 MG TAB PO SCH (20:16)
[2018-04-02] MEDS: PROPRANOLOL HCL 10 MG TAB PO PRN (05:49)
[2018-04-02] MEDS ORDERED: ONDANSETRON DISINTEGRATING 4 MG TAB ONE (06:32)
[2018-04-02] MEDS ORDERED: CITRIC ACID/SODIUM CITRATE 30 ML UDCUP ONE (06:33)
[2018-04-02] MEDS ORDERED: fentaNYL 100 MCG/2 ML INJ ONE (06:38)
[2018-04-02] MEDS ORDERED: KETOROLAC 30 MG/1 ML SDV ONE (06:39)
[2018-04-02] MEDS ORDERED: ONDANSETRON 4 MG/2 ML VIAL ONE (06:39)
[2018-04-02] MEDS ORDERED: MIDAZOLAM 2 MG/2 ML VIAL ONE (06:39)
[2018-04-02] MEDS ORDERED: SUCCINYLCHOLINE CHLORIDE 200 MG/10 ML VIAL ONE (06:40)
[2018-04-02] MEDS ORDERED: PROPOFOL 200 MG/20 ML VIAL ONE (06:40)
[2018-04-02] MEDS ORDERED: GLYCOPYRROLATE 0.2 MG/1 ML VIAL ONE (06:40)
[2018-04-02] MEDS ORDERED: ROCURONIUM 50 MG/5 ML VIAL ONE (06:40)
[2018-04-02] MEDS ORDERED: METHOHEXITAL SODIUM 100 MG/10 ML SYR IVP ONE (06:41)
--- NOTE | 2018-04-02 07:04 | POSTANESTH ---
Post Anesthetic Evaluation Cardiovascular Status: Normal, Stable Respiratory Status: Normal, Stable Level of Consciousness/Mental Status: Can Participate in Eval, Alert and Oriented Pain Control: Adequate, Prn Tx Ordered Nausea/Vomiting Control: Adequate, Prn Tx Ordered Complications Possibly Related to Anesthesia: None Noted
--- NOTE | 2018-04-02 07:05 | PDHPUP ---
History & Physical Update H&P update statement: This history and physical update is based on an assessment of the patient which was completed after admission or registration (within 24 hours), but prior to the surgery/procedure. H&P update: H&P reviewed & patient examined (See pre-ANES ECT eval for any changes since last treatment.)
--- NOTE | 2018-04-02 07:11 | PDANEPAE ---
ECT Pre Anesthetic Evaluation Allergies/Adverse Reactions: stan seeds Allergy (Uncoded 03/20/18 19:08) Patient ID confirmed: Yes H&P reviewed: Yes Pre-anesthetic history reviewed: Yes Heart: regular rate and rhythym Lungs: clear to auscultation Mallampati Score: Class 2 ASA Status: II Home Medications: Medication Instructions Recorded Brexpiprazole [Rexulti 1 MG (*)] 1 mg PO Q2D 03/20/18 Levothyroxine [Synthroid 150 mcg 150 mcg PO DAILY06 03/20/18 (*)] [place] Carbonate [[place] 300 mg PO TID 03/20/18 Carbonate Cap 300 mg (*)] Mirtazapine 15 mg PO HS 03/20/18 Venlafaxine HCl [Venlafaxine HCl 75 mg PO DAILY 03/20/18 ER] Venlafaxine HCl [Venlafaxine HCl 150 mg PO DAILY 03/20/18 ER] celeCOXIB [Celebrex (*)] 200 mg PO DAILY 03/20/18 clonazePAM [Clonazepam] 1 mg PO BID@09,12 03/20/18 Medication review: completed Patient interviewed: Yes Patient examined: Yes See previous record: Yes (Tachycardic after treatment. No N/V/ONELI after treatments.) Anesthetic plan discussed with patient: Yes Anesthetic risks discussed with patient: Yes ECT Pre-Anesthetic History - Height & Weight Height: 167.64 cm Weight: 65 kg BMI: 23.14 - Anesthesia History Hx Anesthesia Complications (with details): None Family Hx Anesthesia Complications: None - Medications In the Past 6 Months the Patient Has Taken: Antibiotics, Arthritis Medication, Thyroid Medication - Tobacco/Alcohol/Drug Use Smoking Status: Never smoked Alcohol Use: No - Prior Surgeries/Hospitalizations Prior Surgeries: None in last year Prior Medical Hospitalizations: 2015 - Pulmonary History ECT Hx Asthma: No Hx Abnormal Chest X-Ray: No Hx Oxygen in Use at Home: No - Cardiovascular History Hx Hypertension: No Currently Uses Hypertension Medication: No Hx Arrhythmias: No Hx Palpitations: No Hx Chest Pain: No Hx Coronary Artery / Peripheral Vascular Disease: No Hx Blood Clot: No - Neurologic History Hx Cerebrovascular Accident: No Hx CT Scan Or MRI Of The Brain: Yes Hx Epilepsy, Convulsions, Seizures, Or Blackouts: No Hx Frequent Or Severe Headaches: No Hx Numbness: No Hx Neurologic Disorder: No Neurologic History Comment: CT in 2015 - Dental History Current Dental Issues: None - Endocrine History Hx Diabetes: No Current Daily Insulin Injections: No Hx Thyroid Problems: Yes Endocrine History Comment: Hypothyroid - Renal/Urologic History Hx Renal Disorders: No Hx Urinary Tract Problems: No - Liver History Hx Hepatic Disorders: No - Cancer History Hx Cancer: No - Hematology History Hx Unexplained Bleeding Of Any Type: No Hx Ease Of Bruising: No Hx Anemia: No - Gastrointestinal History Hx Gastroesophogeal Reflux Disease: No Hx Ulcers: No Hx Hiatal Hernia: No Hx Difficulty Swallowing: No - Musculoskeletal Hisory Hx Chronic Pain: Yes Chronic Pain Location: Back Hx Arthritis: Yes Musculoskeletal History Comment: Takes Celebrex for back arthritis - Opthalmic History Hx Glaucoma: No Visual Assistive Devices: None Hx Opthalmic Disorders: No - Other Health History Physical Disabililty: No Recent Cough, Cold, or Fever: No Significant Weight Loss In The Last 4 Months: No Possible the Patient Might be : No
[2018-04-02] MEDS ORDERED: NS 1,000 ML IV PRN (07:16)
[2018-04-02] MEDS ORDERED: ONDANSETRON DISINTEGRATING 4 MG TAB PO PRN (07:16)
[2018-04-02] MEDS ORDERED: CITRIC ACID/SODIUM CITRATE 30 ML UDCUP PO PRN (07:16)
--- NOTE | 2018-04-02 07:22 | PDECTPN ---
ECT Progress Note Patient Problems: Problems Problem Status Onset Code Depression Acute F32.9 Suicidal ideation Acute R45.851 Date: 04/02/18 ECT provider: Murtaza More Anesthesia: Bibi Tran Stimulus dose (%): 55 Pulse width: 0.5 ECT EMG (sec): 23 ECT EEG (sec): 32 ECT treatment type: bilateral QIDS-SR Total Score: 11 QIDS-SR Question #12 Score: 1 MMSE Total Score (Max = 21): 21 Next ECT date: 04/04/18 Next ECT time: 07:15 O/P psychiatrist follow up with Dr.: Noah Xiong O/P psychiatrist follow up: direct communication Home medications: Medication Instructions Recorded Brexpiprazole [Rexulti 1 MG (*)] 1 mg PO Q2D 03/20/18 Levothyroxine [Synthroid 150 mcg 150 mcg PO DAILY06 03/20/18 (*)] [place] Carbonate [[place] 300 mg PO TID 03/20/18 Carbonate Cap 300 mg (*)] Mirtazapine 15 mg PO HS 03/20/18 Venlafaxine HCl [Venlafaxine HCl 75 mg PO DAILY 03/20/18 ER] Venlafaxine HCl [Venlafaxine HCl 150 mg PO DAILY 03/20/18 ER] celeCOXIB [Celebrex (*)] 200 mg PO DAILY 03/20/18 clonazePAM [Clonazepam] 1 mg PO BID@09,12 03/20/18 Medication review: completed Current treatment plan: acute phase Treatment plan frequency: 3 times per week ECT narrative: Pt presents to continue acute course ECT treatment. Reports improved mood and anxiety overall despite deciding on her own to stop clonazepam. She last took it 03/31/18 at 0900. Still sleeping well. No c/o's. Cognition is good. Affect is bright, stable; less blunted. Mood is "anxious." TP is linear. TC reveals no psychosis SI persists. Underwent bilateral ECT without complication. Doing well. Unclear why she decided to refuse clonazepam. Could be sabotoging given the time I spent talking to her about the rationale for not abruptly stopping it and the time frame (3 months) to do so on an outpatient basis. Continue acute course ECT. Restart clonazepam.
[2018-04-02] MEDS: BREXPIPRAZOLE 1 MG TAB PO SCH (08:58)
[2018-04-02] MEDS: clonazePAM 0.5 MG TAB PO SCH ×2 (08:59→12:52)
[2018-04-02] MEDS: LITHIUM CARBONATE 300 MG CAP PO SCH ×2 (08:59→20:32)
[2018-04-02] MEDS: VENLAFAXINE XR 75 MG CAP PO SCH (08:59)
[2018-04-02] MEDS: VENLAFAXINE XR 150 MG CAP PO SCH (09:00)
[2018-04-02] MEDS: LEVOTHYROXINE 150 MCG TAB PO SCH (09:18)
--- NOTE | 2018-04-02 14:45 | ASMTCMCOM ---
CM Note CM Note Notes: Pt. had ECT this morning. Pt. attended the treatment team meeting this morning. Pt. reports no issues from ECT today. Pt. stated she did not take any Klonopin yesterday. Pt. asked how many more ECT treatments will she have. Staff report pt. sleeping 8 hours and being medication compliant, other than declining all Klonopin yesterday. Pt. is set to have ECT on Monday. Date Signed: 04/02/2018 02:45 PM Electronically Signed By:Anastasiia Shaikh
[2018-04-02] MEDS: ACETAMINOPHEN 325 MG TAB PO PRN (15:59)
[2018-04-02] MEDS: HYDROCODONE/APAP 5/325 TAB PO PRN (16:58)
[2018-04-02] MEDS: MIRTAZAPINE 15 MG TAB PO SCH (20:32)
[2018-04-03] MEDS: clonazePAM 0.5 MG TAB PO SCH ×2 (08:22→11:54)
[2018-04-03] MEDS: VENLAFAXINE XR 75 MG CAP PO SCH (08:22)
[2018-04-03] MEDS: LITHIUM CARBONATE 300 MG CAP PO SCH ×2 (08:22→19:46)
[2018-04-03] MEDS: VENLAFAXINE XR 150 MG CAP PO SCH (08:22)
[2018-04-03] MEDS: BREXPIPRAZOLE 1 MG TAB PO SCH (08:22)
[2018-04-03] MEDS: LEVOTHYROXINE 150 MCG TAB PO SCH (10:03)
--- NOTE | 2018-04-03 14:55 | SOAPPROG ---
SOANANYA Progress Note Assessment/Plan: Assessment: Plan: 03/27/18 16:31 Mood: Some early improvement. CCM. 03/29/18 16:22 Mood: Continued improvement. CCM. 04/03/18 14:56 Mood: Doing well. Will proceed as above. Subjective: Pt seen, discussed with staff. Reports feeling "pretty good." Discussed course of treatment and she states she is willing to stay in the hospital through Monday, though wants to return home after that. She will have had 7 acute course treatment by that time. I discussed with her again that the standard length of acute course treatment is 9-12 treatments. I emphasized that if she stops too soon, she may regress and ultimately have to do more treatments. I also reminded her of the discussion we had about her mother coming to [place] and staying with her in a hotel to complete another week of acute course treatment. She states she believes the treatment is more effective than it was before. She states she can "feel it working." She prefers to plan to leave on Monday and then return next week to begin continuation treatment. I emphasized the need for at least four continuation treatments. Pt continues to do well with improved mood and stable cognition. Objective: Vital Signs Temp Pulse Resp BP Pulse Ox 37.1 C 73 16 122/58 H 97 04/03/18 06:00 04/03/18 06:00 04/03/18 06:00 04/03/18 06:00 04/03/18 06:00 04/02/18 04/03/18 04/04/18 05:59 05:59 05:59 Intake Total 825 Balance 825 MSE: Calm, coop, appropriately interactive. Affect is euthymic, stable, approp. Mood is "good." TP is linear, goal-directed. TC reveals no psychosis. No SI. - Time Spent With Patient Time Spent With Patient: 25" ICD10 Worksheet Patient Problems: Problems Problem Status Onset Depression Acute Suicidal ideation Acute
[2018-04-03] MEDS: MIRTAZAPINE 15 MG TAB PO SCH (19:29)
[2018-04-04] MEDS ORDERED: NS 1,000 ML IV PRN (05:00)
[2018-04-04] MEDS ORDERED: CITRIC ACID/SODIUM CITRATE 30 ML UDCUP PO PRN (05:00)
[2018-04-04] MEDS ORDERED: ONDANSETRON DISINTEGRATING 4 MG TAB PO PRN (05:00)
[2018-04-04] MEDS: PROPRANOLOL HCL 10 MG TAB PO PRN (06:12)
[2018-04-04] MEDS ORDERED: fentaNYL 100 MCG/2 ML INJ ONE (06:27)
[2018-04-04] MEDS ORDERED: METHOHEXITAL SODIUM 100 MG/10 ML SYR IVP ONE (06:27)
[2018-04-04] MEDS ORDERED: ONDANSETRON DISINTEGRATING 4 MG TAB ONE (07:00)
[2018-04-04] MEDS ORDERED: CITRIC ACID/SODIUM CITRATE 30 ML UDCUP ONE (07:00)
--- NOTE | 2018-04-04 07:13 | PDHPUP ---
History & Physical Update H&P update statement: This history and physical update is based on an assessment of the patient which was completed after admission or registration (within 24 hours), but prior to the surgery/procedure. H&P update: H&P reviewed & patient examined, changes noted (No changes since Monday)
--- NOTE | 2018-04-04 07:13 | POSTANESTH ---
Post Anesthetic Evaluation Cardiovascular Status: Normal, Stable Respiratory Status: Normal, Stable Level of Consciousness/Mental Status: Can Participate in Eval, Mildly Sleepy, Arousable Pain Control: Adequate, Prn Tx Ordered Nausea/Vomiting Control: Adequate, Prn Tx Ordered Complications Possibly Related to Anesthesia: None Noted
--- NOTE | 2018-04-04 07:14 | PDANEPAE ---
ECT Pre Anesthetic Evaluation Allergies/Adverse Reactions: stan seeds Allergy (Uncoded 03/20/18 19:08) Patient ID confirmed: Yes H&P reviewed: Yes Pre-anesthetic history reviewed: Yes Heart: tachycardia Lungs: clear to auscultation Mallampati Score: Class 1 ASA Status: II Home Medications: Medication Instructions Recorded Brexpiprazole [Rexulti 1 MG (*)] 1 mg PO Q2D 03/20/18 Levothyroxine [Synthroid 150 mcg 150 mcg PO DAILY06 03/20/18 (*)] [place] Carbonate [[place] 300 mg PO TID 03/20/18 Carbonate Cap 300 mg (*)] Mirtazapine 15 mg PO HS 03/20/18 Venlafaxine HCl [Venlafaxine HCl 75 mg PO DAILY 03/20/18 ER] Venlafaxine HCl [Venlafaxine HCl 150 mg PO DAILY 03/20/18 ER] celeCOXIB [Celebrex (*)] 200 mg PO DAILY 03/20/18 clonazePAM [Clonazepam] 1 mg PO BID@09,12 03/20/18 Medication review: completed Patient interviewed: Yes Patient examined: Yes See previous record: Yes Anesthetic plan discussed with patient: Yes Anesthetic risks discussed with patient: Yes ECT Pre-Anesthetic History - Height & Weight Height: 167.64 cm Weight: 65 kg BMI: 23.14 - Anesthesia History Hx Anesthesia Complications (with details): None Family Hx Anesthesia Complications: None - Medications In the Past 6 Months the Patient Has Taken: Antibiotics, Arthritis Medication, Thyroid Medication - Tobacco/Alcohol/Drug Use Smoking Status: Never smoked Alcohol Use: No - Prior Surgeries/Hospitalizations Prior Surgeries: None in last year Prior Medical Hospitalizations: 2015 - Pulmonary History ECT Hx Asthma: No Hx Abnormal Chest X-Ray: No Hx Oxygen in Use at Home: No - Cardiovascular History Hx Hypertension: No Currently Uses Hypertension Medication: No Hx Arrhythmias: No Hx Palpitations: No Hx Chest Pain: No Hx Coronary Artery / Peripheral Vascular Disease: No Hx Blood Clot: No - Neurologic History Hx Cerebrovascular Accident: No Hx CT Scan Or MRI Of The Brain: Yes Hx Epilepsy, Convulsions, Seizures, Or Blackouts: No Hx Frequent Or Severe Headaches: No Hx Numbness: No Hx Neurologic Disorder: No Neurologic History Comment: CT in 2014 - Dental History Current Dental Issues: None - Endocrine History Hx Diabetes: No Current Daily Insulin Injections: No Hx Thyroid Problems: Yes Endocrine History Comment: Hypothyroid - Renal/Urologic History Hx Renal Disorders: No Hx Urinary Tract Problems: No - Liver History Hx Hepatic Disorders: No - Cancer History Hx Cancer: No - Hematology History Hx Unexplained Bleeding Of Any Type: No Hx Ease Of Bruising: No Hx Anemia: No - Gastrointestinal History Hx Gastroesophogeal Reflux Disease: No Hx Ulcers: No Hx Hiatal Hernia: No Hx Difficulty Swallowing: No - Musculoskeletal Hisory Hx Chronic Pain: Yes Chronic Pain Location: Back Hx Arthritis: Yes Musculoskeletal History Comment: Takes Celebrex for back arthritis - Opthalmic History Hx Glaucoma: No Visual Assistive Devices: None Hx Opthalmic Disorders: No - Other Health History Physical Disabililty: No Recent Cough, Cold, or Fever: No Significant Weight Loss In The Last 4 Months: No Possible the Patient Might be : No
[2018-04-04] MEDS ORDERED: DEXAMETHASONE 4 MG/ML VIAL ONE (07:16)
--- NOTE | 2018-04-04 07:47 | PDECTPN ---
ECT Progress Note Patient Problems: Problems Problem Status Onset Code Depression Acute F32.9 Suicidal ideation Acute R45.851 Date: 04/04/18 ECT provider: Murtaza More Anesthesia: Bibi Tran Stimulus dose (%): 100 Pulse width: 0.5 ECT EMG (sec): 11 ECT EEG (sec): 38 ECT treatment type: bilateral QIDS-SR Total Score: 11 QIDS-SR Question #12 Score: 1 MMSE Total Score (Max = 21): 21 Next ECT date: 04/06/18 Next ECT time: 07:15 O/P psychiatrist follow up with DrIsabella: Noah Xiong O/P psychiatrist follow up: direct communication Home medications: Medication Instructions Recorded Brexpiprazole [Rexulti 1 MG (*)] 1 mg PO Q2D 03/20/18 Levothyroxine [Synthroid 150 mcg 150 mcg PO DAILY06 03/20/18 (*)] [place] Carbonate [[place] 300 mg PO TID 03/20/18 Carbonate Cap 300 mg (*)] Mirtazapine 15 mg PO HS 03/20/18 Venlafaxine HCl [Venlafaxine HCl 75 mg PO DAILY 03/20/18 ER] Venlafaxine HCl [Venlafaxine HCl 150 mg PO DAILY 03/20/18 ER] celeCOXIB [Celebrex (*)] 200 mg PO DAILY 03/20/18 clonazePAM [Clonazepam] 1 mg PO BID@09,12 03/20/18 Current treatment plan: acute phase Treatment plan frequency: 3 times per week ECT narrative: Pt presents for continued acute course ECT treatment. Reports continued improvement in mood and anxiety. Sleep remains stable. No c/o's. Cognition is good. Affect is euthymic, stable. Mood is "good." TP is linear. TC reveals no psychosis SI persists. Underwent bilateral ECT without complication. Continued improvement. Continue acute course ECT through Monday with d/c and transition to continuation treatment after that if all is well.
[2018-04-04] MEDS: BREXPIPRAZOLE 1 MG TAB PO SCH (09:26)
[2018-04-04] MEDS: LITHIUM CARBONATE 300 MG CAP PO SCH ×2 (09:26→19:48)
[2018-04-04] MEDS: VENLAFAXINE XR 150 MG CAP PO SCH (09:26)
[2018-04-04] MEDS: clonazePAM 0.5 MG TAB PO SCH ×2 (09:27→13:01)
[2018-04-04] MEDS: VENLAFAXINE XR 75 MG CAP PO SCH (09:27)
[2018-04-04] MEDS: LEVOTHYROXINE 150 MCG TAB PO SCH (10:52)
[2018-04-04] MEDS: MIRTAZAPINE 15 MG TAB PO SCH (19:48)
[2018-04-05] MEDS: BREXPIPRAZOLE 1 MG TAB PO SCH (08:21)
[2018-04-05] MEDS: VENLAFAXINE XR 150 MG CAP PO SCH (08:22)
[2018-04-05] MEDS: clonazePAM 0.5 MG TAB PO SCH ×2 (08:22→13:34)
[2018-04-05] MEDS: LITHIUM CARBONATE 300 MG CAP PO SCH ×2 (08:22→15:47)
[2018-04-05] MEDS: VENLAFAXINE XR 75 MG CAP PO SCH (08:22)
[2018-04-05] MEDS: LEVOTHYROXINE 150 MCG TAB PO SCH (11:01)
--- NOTE | 2018-04-05 15:16 | SOAPPROG ---
SOAP Progress Note Assessment/Plan: Assessment: Plan: 03/27/18 16:31 Mood: Some early improvement. CCM. 03/29/18 16:22 Mood: Continued improvement. CCM. 04/03/18 14:56 Mood: Doing well. Will proceed as above. 04/05/18 15:16 Mood: Continued improvement. CCM. Likely d/c tomorrow after ECT. Subjective: Pt seen, discussed with staff. Reviewed again treatment plan. She continues to request d/c tomorrow after treatment. Cognition is notably impaired, but does not interfere with her functioning. Sleeping well. Anxiety improved. Objective: Vital Signs Temp Pulse Resp BP Pulse Ox 36.9 C 81 14 115/62 96 04/05/18 06:00 04/05/18 06:00 04/05/18 06:00 04/05/18 06:00 04/05/18 06:00 04/04/18 04/05/18 04/06/18 05:59 05:59 05:59 Intake Total 1500 Balance 1500 MSE: Calm, coop. Affect is bright, stable, approp. Mood is "good." TP is linear, goal-directed. TC reveals no psychosis. No SI. - Time Spent With Patient Time Spent With Patient: 25" ICD10 Worksheet Patient Problems: Problems Problem Status Onset Depression Acute Suicidal ideation Acute
[2018-04-05] MEDS: MIRTAZAPINE 15 MG TAB PO SCH (19:58)
[2018-04-06] MEDS ORDERED: CITRIC ACID/SODIUM CITRATE 30 ML UDCUP PO PRN (05:00)
[2018-04-06] MEDS ORDERED: ONDANSETRON DISINTEGRATING 4 MG TAB PO PRN (05:00)
[2018-04-06] MEDS ORDERED: NS 1,000 ML IV PRN (05:00)
[2018-04-06] MEDS ORDERED: fentaNYL 100 MCG/2 ML INJ ONE (06:35)
[2018-04-06] MEDS ORDERED: METHOHEXITAL SODIUM 100 MG/10 ML SYR IVP ONE ×2 (06:35→07:39)
[2018-04-06] MEDS ORDERED: ONDANSETRON DISINTEGRATING 4 MG TAB ONE (06:41)
[2018-04-06] MEDS ORDERED: CITRIC ACID/SODIUM CITRATE 30 ML UDCUP ONE (06:41)
--- NOTE | 2018-04-06 07:34 | PDANEPAE ---
ECT Pre Anesthetic Evaluation Allergies/Adverse Reactions: stan seeds Allergy (Uncoded 03/20/18 19:08) Patient ID confirmed: Yes H&P reviewed: Yes Pre-anesthetic history reviewed: Yes Heart: regular rate and rhythym Lungs: clear to auscultation Mallampati Score: Class 1 ASA Status: II Home Medications: Medication Instructions Recorded Brexpiprazole [Rexulti 1 MG (*)] 1 mg PO Q2D 03/20/18 Levothyroxine [Synthroid 150 mcg 150 mcg PO DAILY06 03/20/18 (*)] [employer] Carbonate [[employer] 300 mg PO TID 03/20/18 Carbonate Cap 300 mg (*)] Mirtazapine 15 mg PO HS 03/20/18 Venlafaxine HCl [Venlafaxine HCl 75 mg PO DAILY 03/20/18 ER] Venlafaxine HCl [Venlafaxine HCl 150 mg PO DAILY 03/20/18 ER] celeCOXIB [Celebrex (*)] 200 mg PO DAILY 03/20/18 clonazePAM [Clonazepam] 1 mg PO BID@,12 03/20/18 Medication review: completed Patient interviewed: Yes Patient examined: Yes See previous record: Yes Anesthetic plan discussed with patient: Yes Anesthetic risks discussed with patient: Yes ECT Pre-Anesthetic History - Height & Weight Height: 167.64 cm Weight: 65 kg BMI: 23.14 - Anesthesia History Hx Anesthesia Complications (with details): None Family Hx Anesthesia Complications: None - Medications In the Past 6 Months the Patient Has Taken: Antibiotics, Arthritis Medication, Thyroid Medication - Tobacco/Alcohol/Drug Use Smoking Status: Never smoked Alcohol Use: No - Prior Surgeries/Hospitalizations Prior Surgeries: None in last year Prior Medical Hospitalizations: 2015 - Pulmonary History ECT Hx Asthma: No Hx Abnormal Chest X-Ray: No Hx Oxygen in Use at Home: No - Cardiovascular History Hx Hypertension: No Currently Uses Hypertension Medication: No Hx Arrhythmias: No Hx Palpitations: No Hx Chest Pain: No Hx Coronary Artery / Peripheral Vascular Disease: No Hx Blood Clot: No - Neurologic History Hx Cerebrovascular Accident: No Hx CT Scan Or MRI Of The Brain: Yes Hx Epilepsy, Convulsions, Seizures, Or Blackouts: No Hx Frequent Or Severe Headaches: No Hx Numbness: No Hx Neurologic Disorder: No Neurologic History Comment: CT in 2014 - Dental History Current Dental Issues: None - Endocrine History Hx Diabetes: No Current Daily Insulin Injections: No Hx Thyroid Problems: Yes Endocrine History Comment: Hypothyroid - Renal/Urologic History Hx Renal Disorders: No Hx Urinary Tract Problems: No - Liver History Hx Hepatic Disorders: No - Cancer History Hx Cancer: No - Hematology History Hx Unexplained Bleeding Of Any Type: No Hx Ease Of Bruising: No Hx Anemia: No - Gastrointestinal History Hx Gastroesophogeal Reflux Disease: No Hx Ulcers: No Hx Hiatal Hernia: No Hx Difficulty Swallowing: No - Musculoskeletal Hisory Hx Chronic Pain: Yes Chronic Pain Location: Back Hx Arthritis: Yes Musculoskeletal History Comment: Takes Celebrex for back arthritis - Opthalmic History Hx Glaucoma: No Visual Assistive Devices: None Hx Opthalmic Disorders: No - Other Health History Physical Disabililty: No Recent Cough, Cold, or Fever: No Significant Weight Loss In The Last 4 Months: No Possible the Patient Might be : No
--- NOTE | 2018-04-06 07:39 | PDECTPN ---
ECT Progress Note Patient Problems: Problems Problem Status Onset Code Depression Acute F32.9 Suicidal ideation Acute R45.851 Date: 04/06/18 ECT provider: Murtaza More Stimulus dose (%): 65 Pulse width: 0.5 ECT EMG (sec): 10 ECT EEG (sec): 22 ECT treatment type: bilateral QIDS-SR Total Score: 6 QIDS-SR Question #12 Score: 0 MMSE Total Score (Max = 21): 18 Next ECT date: 04/11/18 Next ECT time: 13:00 O/P psychiatrist follow up with DrIsabella: Noah Xiong O/P psychiatrist follow up: direct communication Home medications: Medication Instructions Recorded Brexpiprazole [Rexulti 1 MG (*)] 1 mg PO Q2D 03/20/18 Levothyroxine [Synthroid 150 mcg 150 mcg PO DAILY06 03/20/18 (*)] Paola Carbonate [Paola 300 mg PO TID 03/20/18 Carbonate Cap 300 mg (*)] Mirtazapine 15 mg PO HS 03/20/18 Venlafaxine HCl [Venlafaxine HCl 75 mg PO DAILY 03/20/18 ER] Venlafaxine HCl [Venlafaxine HCl 150 mg PO DAILY 03/20/18 ER] celeCOXIB [Celebrex (*)] 200 mg PO DAILY 03/20/18 clonazePAM [Clonazepam] 1 mg PO BID@09,12 03/20/18 Medication review: completed Current treatment plan: acute phase Treatment plan frequency: 3 times per week ECT narrative: Pt presents for continued acute course ECT treatment. Reports continued improvement in mood and anxiety. No c/o's. Cognition is good. Discussed again treatment course and discharge plan. She remains firm with her desire to discharge today, returning next week for continuation treatment. Affect is euthymic, stable. Mood is "good." TP is linear. TC reveals no psychosis SI persists. Underwent bilateral ECT without complication. Continued improvement. Will complete acute course treatment today. Return next week to begin continuation treatment.
[2018-04-06] MEDS: BREXPIPRAZOLE 1 MG TAB PO SCH (09:16)
[2018-04-06] MEDS: LEVOTHYROXINE 150 MCG TAB PO SCH (09:17)
[2018-04-06] MEDS: LITHIUM CARBONATE 300 MG CAP PO SCH (09:17)
[2018-04-06] MEDS: VENLAFAXINE XR 75 MG CAP PO SCH (09:17)
[2018-04-06] MEDS: VENLAFAXINE XR 150 MG CAP PO SCH (09:17)
[2018-04-06] MEDS: clonazePAM 0.5 MG TAB PO SCH ×2 (09:17→11:17)
[2018-04-06 10:58] VITALS: BP 115/56
--- NOTE | 2018-04-06 12:10 | ASMTBHDC ---
Notes Note: Notes: The patient participated in clinical treatment team rounds. She was calm and appropriate. She reported feeling confident and safe regarding her discharge. The patient discussed her outpatient treatment. The patient reported medication infiltration during ECT treatment resulting in anxious symptoms. Date Signed: 04/06/2018 12:09 PM Electronically Signed By:Radha Lowery
== END 2018-04-06 11:23 | disposition home or self-care (01) | DRG 885 ==
LOC: EEVIPCON 19:01 → BBEH 03-21 18:00
PROVIDERS: ADMIT Psychiatry & Neurology Psychiatry; ATTEND Psychiatry & Neurology Psychiatry
PROC: GZB2ZZZ Electroconvulsive Therapy, Bilateral-Single Seizure (ICD-10-PCS; principal; 2018-03-23)
DX: F33.3 Major depressive disorder, recurrent, severe with psychotic symptoms (principal); N17.9 Acute kidney failure, unspecified; E03.9 Hypothyroidism, unspecified; G43.909 Migraine, unspecified, not intractable, without status migrainosus
CPT/HCPCS: 80305; G0480; J0330; J1100; J1885; J2250; J2405; J2704; J3010

== ENCOUNTER 2018-06-25 09:45 | Inpatient (IN) | payer BC ==
[2018-06-25] MEDS ORDERED: MAG HYDROX/AL HYDROX/SIMETH 30 ML UDCUP PO PRN (10:58)
[2018-06-25] MEDS ORDERED: ACETAMINOPHEN 325 MG TAB PO PRN (10:58)
[2018-06-25] MEDS ORDERED: MAGNESIUM HYDROXIDE 30 ML UDCUP PO PRN (10:58)
[2018-06-25] MEDS ORDERED: LORazepam 0.5 MG TAB PO PRN (10:58)
[2018-06-25] MEDS ORDERED: LOPERAMIDE HCL 2 MG CAP PO PRN (11:08)
--- NOTE | 2018-06-25 12:26 | BAPA ---
[f rep st] ADMISSION PSYCHIATRIC ASSESSMENT DATE OF SERVICE: 06/25/2018 CHIEF COMPLAINT: "I am just not safe to be at home." HISTORY OF PRESENT ILLNESS: The patient is a 37-year-old female with a history of bipolar 2 disorder with chronic treatment-refractory depression. She has been treated over time with multipl e antidepressants including several years on Zoloft, Effexor, [place], Zyprexa, Seroquel, Abilify, Xa nax, Ativan, Klonopin, and most recently had a trial of Rexulti. She was hospitalized with us from 0 03/21/18 to 04/06/18, due to worsened depression and suicidal ideations. At that time, she was treate d with ECT, having a total of 10 treatments with the last being on 05/09/2018. She responded well to the ECT and states that when she left the hospital, she felt confident and that her mood had normali zed. At that time, she was on the Effexor at 225 mg, the lithium, clonazepam, Rexulti, and melatonin . She states that she felt well initially and returned to work, but soon found that her mood was dec lining. She continued to work with her outpatient psychiatrist, Dr. Xiong in [place] and he help ed adjust her medications. She states that this was not helpful ultimately, and that about 3 weeks a go she presented to the hospital in [place] for hospitalization due to increased suicidality. There she states that they stopped her clonazepam cold turkey and that she ended up having some sign ificant withdrawal. They also recommended that she seek ketamine treatment. She states she was ther e for a week and then discharged back home. She sought consultation with another psychiatrist in [facility], who does ketamine infusions and states that she has had 2 of those without benefit. My conversat ion with Dr. Xiong indicates also that he has not noticed any benefit from the ketamine for her and that the medication treatments recently have been ineffective. He is concerned for her safety as her suicidality has increased and he believes that the ECT was helpful to her. The patient contacted us in the past week stating that she wants to have an additional trial of ECT as she believes also was helpful and that she believes that her suicidality is increasing and that she is not currently safe. She states that she also wants to return to roles where she is working and helping care for her virgilio wooten, which she is currently unable to do either. She notes primary symptoms of depressed mood, feel ings of helplessness and hopelessness, guilt and shame, poor sleep with initial and middle insomnias, chronic generalized anxiety with occasional panic attacks. She relates this to some chronic diarrhe a that has occurred for the last 2 months and nausea and lack of appetite. She states that she has l ost more than 10 pounds in the past 2 months. Her energy and motivation are poor. Her short-term me caridad and concentration are also poor. She notes that those deficits induced by the ECT have largely resolved, but that she feels like her brain is still not functioning well, which she attributes to de pression. She states she is having suicidal ideations with several fantasies of how she might kill h erself, but no specific plan. PAST PSYCHIATRIC HISTORY: Largely as above. She [facility] [place] as well as a hospitalization last week. She currently sees Dr. Xiong and dagoberto alberto psychiatrist in [place] who is doing the ketamine infusions, though I do not know his name. She has a history of chronic and recurrent suicidal thoughts, though no known history of attempts. ALLERGIES: Zachary seeds. CURRENT MEDICATIONS: Include Effexor XR 150 mg daily, clonazepam 0.25 in the morning, 0.5 midday and 0.5 in the evening, lithium carbonate ER 300 mg in the morning, 450 mg in the evening, Remeron 30 mg at h.s., Synthroid 112 mcg daily, and Imodium p.r.n. PAST MEDICAL HISTORY: Significant for hypothyroidism and her recent GI issues. SOCIAL HISTORY: Patient lives in [place], [place]. 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 She states she is currently on FMLA from [employer]. She has worked there for approximately a year. She is , having been for 5 years. She has 2 daughters, ages 3 and 5. has full custody due to her inability to care for the children, though she has visited with them in the past, 2 to 3 times a week. She states she has not felt up to doing this recently. The patient's primary support is her mother who lives out of [facility]. Her mother gave collateral information to Inessa Patiño, our outpatient coordinator that she is h aving difficulty helping patient's sister who apparently has a substance use disorder and hoarding an d that she is feeling fairly overwhelmed. The patient states she does not believe she can return [place] to live by herself any time in the near future. FAMILY HISTORY: Patient denies any family history of depression, bipolar disorder, or suicide. She does however state she had a great aunt who was in an asylum, though does not know why. ADMISSION LABORATORY: Pending. MENTAL STATUS EXAMINATION: Reveals a healthy-appearing female. She is well groomed, appro priately dressed. She does appear to have lost weight since last time I saw her. She demonstrates s ome psychomotor retardation, though is appropriate and interactive. Her affect is dysphoric, restric saida, stable, and appropriate. Her mood is described as "very depressed." Her thought process is jaky ear and goal directed. Her thought content reveals no evidence of psychosis. She is alert and orien saida to person, place, time, and situation. Her sensorium is clear. She continues to voice thoughts of suicide, stating that she feels unsafe to be out of the hospital for fear she may act on these tho ughts. Her intellect appears to be above average as evidenced by her educational and occupational hi stories, fund of knowledge, and vocabulary. Her insight and judgment appear to be good. IMPRESSION: Bipolar II disorder, most recent episode depressed, severe without psychosis. Chronic w ith treatment resistant features. Attendant anxiety versus generalized anxiety disorder. Marginal s upports, occupational problems, financial problems, parenting problems. The patient is a 37-year-old female with a history of chronic and treatment-resistant depre ssion related to her bipolar type 2 illness. She presents at this time having not done well since we discontinued electroconvulsive therapy altogether. I am hoping that we will be able to do an abbrev iated acute course and perhaps consider longer-term maintenance. It very well may be necessary for gualberto stewart to reside nearer a Program that can support her in these needs. She is understanding of this and states that she is willing to consider relocation. PLAN: 1. Admit to the [facility] inpatient unit on a voluntary basis. 2. Continue previous outpatient medications with another consultation with Dr. Xiong to see if he w ants to make any adjustments there. 3. Begin ECT. The patient has actually had her first treatment this morning already and tolerated t hat well. I anticipate doing 3 to 6 acute course treatments and moving into maintenance as soon as s he is feeling better. ESTIMATED LENGTH OF STAY: 7 to 10 days. /[id number]/MODL
[2018-06-25] MEDS: clonazePAM 0.5 MG TAB PO SCH ×2 (12:44→17:23)
[2018-06-25 13:34] LABS: PLATELET COUNT 364 10^3/uL (150-400)
--- NOTE | 2018-06-25 14:44 | PDMN ---
Medical Necessity Medical necessity: Pt meets inpt criteria per MD order and [facility] [id number], Bipolar Disorders, Adult: Inpatient Care, 4 days, 37 y/o admitted w/bipolar II disorder, most recent episode depressed, severe without psychosis, will have ECT tx this admission. Hx chronic and tx-resistant depression, anticipate>2MN for ongoing inpt psychiatric hospitalization for tx of above.
[2018-06-25] MEDS: MIRTAZAPINE 30 MG TAB PO SCH (21:16)
[2018-06-25] MEDS: LITHIUM CARBONATE ER 450 MG TAB PO SCH (21:16)
[2018-06-26] MEDS: LITHIUM CARBONATE ER 300 MG TAB PO SCH (08:27)
[2018-06-26] MEDS: clonazePAM 0.5 MG TAB PO SCH ×3 (08:27→17:54)
[2018-06-26] MEDS: VENLAFAXINE XR 150 MG CAP PO SCH (08:27)
[2018-06-26] MEDS ORDERED: clonazePAM 1 MG TAB PO SCH (09:00)
--- NOTE | 2018-06-26 09:26 | ASMTBHMTP ---
Master Treatment Plan Master Treatment Plan Answers: Depressed Mood with for: Suicidal Ideation Date: 06/26/2018 Diagnosis on Admission: Bipolar 2 disorder with chronic treatment-refractory depression Expected length of stay: 7-10 days Reason for admission: Notes: Per admitting psychiatrist's not, "The pt is a 37 year old female with a hx of bipolar 2 disorder with chronic treatment-refractory depression. She has been treated overtime with multiple antidepressants...She was hospitalized with us from 03/21/18 to 04/06/18, due to worsened depression and suicidal ideations. At thistime she was treated with ECT, having a total of 10 treatments with the last being on 05/09/18. She responded well to the ECT and states that when she left the hospital, she felt confident and that her mood had normalized....She states that she felt well intially and had returned to work, but soon found that her mood was declining. She continued to work with her out-pt psychiatrist..., and he helped her adjust her medications. She states that this was not helpful ultimately and that about three weeks ago she presented to the hospital in [place] for hospitalization due to increased suicidality. there she states that they stopped her Clonazepam cold turkey and that she ended up having some significant withdrawl. They also recommended that she seek ketamine treatment. She states she was there for a week and then discharged back home. She sought consultation with another psychiatrist in [place], who does Ketamine infusions and states that she has had two of those without benefit...Dr Xiong is concerned for her safety as her suicidality has increased and he believes that ECT was helpful. Patient's stated presenting problems: Notes: "Depression and severe anxiety". Patient's goals for treatment: Notes: For patient's mother to agree to come and live with her for a period of time as a part of her discharge plan. Patient's strengths: Notes: Patient cited her intelligence and perseverence. Identify supports outside of hospital: Notes: patient has identified her mother Yvette Deleon and her therapist, mono canchola. Discharge criteria: Notes: Suicidal ideation will resolve and patient will have a plan to safely manage recurrent suicidal ideation. Master Treatment Plan Required Signatures Psychiatrist signature: Answers: [facility]in Drummond, [facility]: RN on-shift signature: Answers: RN: Patient signature: Answers: Patient: Date Signed: 06/26/2018 09:24 AM Electronically Signed By:Naima Gillespie
[2018-06-26] MEDS: LEVOTHYROXINE 112 MCG TAB PO SCH (10:38)
--- NOTE | 2018-06-26 15:19 | PDGENHP ---
History and Physical History and Physical: CC: HISTORY: Worsening depression and suicidal ideation. She has had chronic issues, has been on numerous antidepressant and mood stabilizer meds with little to no benefit, has had ECT here w some short lived benefit, and has tried ketamine therapy with no observed benefit. She lives in [place] and her psychiatrist there has referred her here for more ECT, she comes voluntarily and seeking help. Had been drinking 3-4 glasses of wine per weekend but stopped [address]. She is on chronic synthroid for hypothyroid - 3 weeks ago her dose decreased from 150 to 112 due to high TSH, but no benefit in either psychiatric symptoms or GI symptoms (see below). ROS: Significant diarrhea for 3 months, associated 10 lb weight loss. No bleeding, no abd pain, no nausea or vomiting and no skin/eye/orophayngeal/joint symptoms. (she has had stool studies done with no sign of infection but no endoscopy.) Is using immodium with some benefit, no noted side effects of that. A comprehensive 10 system review revealed no other significant findings PAST MEDICAL HISTORY: Bipolar disorder Treatment refractory depression after attempts with at least 10 different medications including ketamine History of suicidal ideation History of ECT treatments with some improvement at the time Hypothyroidism FAMILY MEDICAL HISTORY: 1 aunt who was treated for mental health issues in an asylum but no other mental health issues Sister with substance abuse disorder and hoarding behaviors No family hx of bowel disease or autoimmune disease SOCIAL HISTORY: Mother of young children; currently with full custody 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 I have reviewed the list and ordered appropriate medicines. PHYSICAL EXAMINATION: Vital Signs: all normal no fever Production Crew Supervisor: Examination: General: alert, oriented, good mentation, relaxed, but depressed affect; makes good eye contact, Skin: warm, dry, good color, no rash HEENT: normal Neck: no mass or jvd Resps: relaxed Lungs: clear breath sounds Heart: regular, no murmur Abdomen: soft, nondistended, nontender, +BS, no mass Upper Extremities: normal Lower Extremities: no edema, warm No Bleeding or bruising Neurologic: no tremor; normal speech/language, normal field map editor, no focal weakness IV site: looks normal LABORATORY DATA: [place] [address] with predominance in neutrophils CO2 low at 20, glucose high at 182 Otherwise unremarkable CBC and complete metabolic panel TSH is not done yet ASSESSMENT: * Progression of chronic depression/anxiety and suicidal ideation in a patient with long and a differs efforts to treat her symptoms -pt admitted for suicidal ideation and to begin ECT * 3+ months of diarrheal stools and some weight loss, no infection on testing elsewhere -could be irritable bowel aggravated by mental health issues; however if she does not resolve with treatment of that she should have her PCP refer her to a deck mechanic to consider colonoscopy * Hypothyroidism with recent high TSH and lowered dose -needs recheck of her TSH to be sure in range * Elevated WBC -no specific symptoms or exam changes to suggest cause; will repeat this to se if improving, watch for fever or other signs of illness I have reviewed the patient's past medical records as part of this assessment, including previous hospital admission records
--- NOTE | 2018-06-26 16:00 | SOAPPROG ---
SOAP Progress Note Assessment/Plan: Assessment: Plan: 06/26/18 15:59 Mood: Remains depressed with prominent helpless/hopeless feelings and SI. Will CCM. Subjective: Pt seen, discussed with staff, interviewed in Treatment Team meeting. She remains blunted, withdrawn, describes herself as "losing hope." Discussed importance of getting out of this depression and then working to establish a different life plan. She is agreeable to continuing current plan inc: ECT. MSE: Activity low, speech low in tone, fluent. Affect is dysphoric, blunted, stable, approp., congruent. Mood is "bad." TP is linear. TC reveals no psychosis. SI persists. Objective: Vital Signs Temp Pulse Resp BP Pulse Ox 36.8 C 89 14 113/59 L 98 06/26/18 06:00 06/26/18 06:00 06/26/18 06:00 06/26/18 06:00 06/26/18 06:00 Laboratory Results 06/25/18 13:15 06/25/18 13:15 - Time Spent With Patient Time Spent With Patient: 25" ICD10 Worksheet Patient Problems: Problems Problem Status Onset Depression Acute Suicidal ideation Acute
[2018-06-26] MEDS: MIRTAZAPINE 30 MG TAB PO SCH (21:14)
[2018-06-26] MEDS: LITHIUM CARBONATE ER 450 MG TAB PO SCH (21:18)
[2018-06-27] MEDS ORDERED: ONDANSETRON DISINTEGRATING 4 MG TAB PO PRN (05:00)
[2018-06-27] MEDS ORDERED: NS 1,000 ML IV PRN (05:00)
[2018-06-27] MEDS ORDERED: CITRIC ACID/SODIUM CITRATE 30 ML UDCUP PO PRN (05:00)
[2018-06-27] MEDS ORDERED: ONDANSETRON DISINTEGRATING 4 MG TAB ONE (06:23)
[2018-06-27] MEDS ORDERED: CITRIC ACID/SODIUM CITRATE 30 ML UDCUP ONE (06:23)
--- NOTE | 2018-06-27 07:42 | PDECTPN ---
ECT Progress Note Patient Problems: Problems Problem Status Onset Code Depression Acute F32.9 Suicidal ideation Acute R45.851 Date: 06/27/18 ECT provider: Murtaza More Anesthesia: Beauchristiano Yoojillian Stimulus dose (%): 80 Pulse width: 0.5 ECT EMG (sec): 23 ECT EEG (sec): 36 ECT treatment type: bilateral Next ECT date: 06/29/18 Next ECT time: 07:30 Home medications: Medication Instructions Recorded Levothyroxine [Synthroid 150 mcg 112 mcg PO DAILY06 03/20/18 (*)] [place] Carbonate [[place] 300 mg PO DAILY AT 10AM 03/20/18 Carbonate Cap 300 mg (*)] Venlafaxine Xr [Effexor Xr 75MG 75 mg PO DAILY 04/18/18 (*)] Hydroxyzine Pamoate [Vistaril] 50 mg PO Q6HRS PRN 06/25/18 [place] Carbonate ER [Eskalith Cr 450 mg PO QID 06/25/18 450 mg (*)] Loperamide HCl [Imodium 2 mg (*)] 2 mg PO PRN PRN 06/25/18 Mirtazapine [Remeron] 30 mg PO HS 06/25/18 Venlafaxine Xr [Effexor Xr] 150 mg PO DAILY 06/25/18 busPIRone [Buspar (*)] 10 mg PO BID 06/25/18 clonazePAM [klonoPIN (*)] 1 mg PO TID PRN 06/25/18 Medication review: completed Current treatment plan: acute phase Treatment plan frequency: 3 times per week ECT narrative: Pt is seen for continued acute course treatment. She reports feeling "about the same." Continues to struggle with feelings of hopelessness. States, "I'm afraid I'll never feel better." Getting along well in the milieu, though tends to isolate. MSE: Affect is restricted, stable, approp. Mood is "depressed." TP is linear. TC reveals no psychosis. SI persists.
[2018-06-27] MEDS: VENLAFAXINE XR 150 MG CAP PO SCH (09:02)
[2018-06-27] MEDS: LITHIUM CARBONATE ER 300 MG TAB PO SCH (09:02)
[2018-06-27] MEDS: clonazePAM 0.5 MG TAB PO SCH ×3 (09:03→17:23)
--- NOTE | 2018-06-27 09:03 | POSTANESTH ---
Post Anesthetic Evaluation Cardiovascular Status: Normal, Stable Respiratory Status: Normal, Stable Level of Consciousness/Mental Status: Can Participate in Eval Pain Control: Adequate, Prn Tx Ordered Nausea/Vomiting Control: Adequate, Prn Tx Ordered Complications Possibly Related to Anesthesia: None Noted
[2018-06-27] MEDS: LEVOTHYROXINE 112 MCG TAB PO SCH (10:04)
--- NOTE | 2018-06-27 15:19 | ASMTCMCOM ---
CM Note CM Note Notes: CC spoke with pt to discuss her concern of returning to her home alone and her mother only being able to stay with her for a brief period of time. Pt broached the idea with her mother of returning to [place] to live with her mother. [facility] had some reservations citing the difficulty in securing mental health care and Maegan being away from her children. Pt would still mónica to consider this and was interested in having a potential family mtg with her mother and CC over the phone, tomorrow. She plans to discuss this with her mother this evening. She would be living close to [place] and would most likely need to access her ECT /psychiatry and therapy from there. She has only seen her present therapist for 4 weeks and this CC strongly encouraged her to see one after d/c. Date Signed: 06/27/2018 03:18 PM Electronically Signed By:Naima Gillespie
--- NOTE | 2018-06-27 18:17 | HOSPPROG ---
Hospitalist Progress Note Assessment/Plan: On follow up of lab testing, her wbc is much improved and near normal today. As there is no fever or other symptoms of infection I am not very concerned about the wbc, would no do any other evaluation unless new symptoms or other concerning signs develop. Her TSH is currently in normal range so no changes indicated in treatment for thyroid. Objective: Vital Signs Temp Pulse Resp BP Pulse Ox 37.1 C 75 14 120/73 99 06/27/18 08:54 06/27/18 08:54 06/27/18 08:54 06/27/18 08:54 06/27/18 08:54 Laboratory Results 06/27/18 06:50 06/25/18 13:15 06/26/18 06/27/18 06/28/18 06:59 06:59 06:59 Intake Total 1000 Balance 1000 ICD10 Worksheet Patient Problems: Problems Problem Status Onset Depression Acute Suicidal ideation Acute
[2018-06-27] MEDS: MIRTAZAPINE 30 MG TAB PO SCH (20:24)
[2018-06-27] MEDS: LITHIUM CARBONATE ER 450 MG TAB PO SCH (20:24)
[2018-06-28] MEDS: clonazePAM 0.5 MG TAB PO SCH ×3 (08:26→17:20)
[2018-06-28] MEDS: VENLAFAXINE XR 150 MG CAP PO SCH (08:26)
[2018-06-28] MEDS: LITHIUM CARBONATE ER 300 MG TAB PO SCH (08:26)
[2018-06-28] MEDS: LEVOTHYROXINE 112 MCG TAB PO SCH (10:03)
--- NOTE | 2018-06-28 15:01 | SOAPPROG ---
SOAP Progress Note Assessment/Plan: Assessment: Plan: 06/26/18 15:59 Mood: Remains depressed with prominent helpless/hopeless feelings and SI. Will CCM. 06/28/18 15:01 Mood: No change in overall quality of mood. CCM. Subjective: Pt seen, discussed with staff. Reports sleeping well though remains helpless and hopeless, stating, "I just don't see how I will continue. I don't think I' ll ever get better." Voices shame and guilt over not being a better parent. I encouraged her to allow us to care for her and take things one step at a time with primary goal being recovery. She is agreeable to this. MSE: Calm, coop. Affect is dysphoric, blunted, stable. Mood is "bad." TP is linear. TC reveals no psychosis. SI persists. Objective: Vital Signs Temp Pulse Resp BP Pulse Ox 37 C 78 14 104/64 98 06/28/18 06:00 06/28/18 06:00 06/28/18 06:00 06/28/18 06:00 06/28/18 06:00 Laboratory Results 06/27/18 06:50 06/25/18 13:15 06/27/18 06/28/18 06/29/18 05:59 05:59 05:59 Intake Total 1000 Balance 1000 - Time Spent With Patient Time Spent With Patient: 25" ICD10 Worksheet Patient Problems: Problems Problem Status Onset Depression Acute Suicidal ideation Acute
[2018-06-28] MEDS: LITHIUM CARBONATE ER 450 MG TAB PO SCH (18:13)
[2018-06-28] MEDS: MIRTAZAPINE 30 MG TAB PO SCH (20:31)
[2018-06-29] MEDS ORDERED: CITRIC ACID/SODIUM CITRATE 30 ML UDCUP PO PRN (05:00)
[2018-06-29] MEDS ORDERED: ONDANSETRON DISINTEGRATING 4 MG TAB PO PRN (05:00)
[2018-06-29] MEDS ORDERED: NS 1,000 ML IV PRN (05:00)
[2018-06-29] MEDS ORDERED: CITRIC ACID/SODIUM CITRATE 30 ML UDCUP ONE (07:27)
[2018-06-29] MEDS ORDERED: ONDANSETRON DISINTEGRATING 4 MG TAB ONE (07:27)
--- NOTE | 2018-06-29 08:07 | PDANEPAE ---
ECT Pre Anesthetic Evaluation Allergies/Adverse Reactions: stan seeds Allergy (Uncoded 03/20/18 19:08) Patient ID confirmed: Yes H&P reviewed: Yes Pre-anesthetic history reviewed: Yes Heart: regular rate and rhythym Lungs: no respiratory distress Mallampati Score: Class 1 ASA Status: II Home Medications: Medication Instructions Recorded Levothyroxine [Synthroid 150 mcg 112 mcg PO DAILY06 03/20/18 (*)] [place] Carbonate [[place] 300 mg PO DAILY AT 10AM 03/20/18 Carbonate Cap 300 mg (*)] Venlafaxine Xr [Effexor Xr 75MG 75 mg PO DAILY 04/18/18 (*)] Hydroxyzine Pamoate [Vistaril] 50 mg PO Q6HRS PRN 06/25/18 [place] Carbonate ER [Eskalith Cr 450 mg PO QID 06/25/18 450 mg (*)] Loperamide HCl [Imodium 2 mg (*)] 2 mg PO PRN PRN 06/25/18 Mirtazapine [Remeron] 30 mg PO HS 06/25/18 Venlafaxine Xr [Effexor Xr] 150 mg PO DAILY 06/25/18 busPIRone [Buspar (*)] 10 mg PO BID 06/25/18 clonazePAM [klonoPIN (*)] 1 mg PO TID PRN 06/25/18 Medication review: completed Patient interviewed: Yes Patient examined: Yes Anesthetic plan discussed with patient: Yes Anesthetic risks discussed with patient: Yes ECT Pre-Anesthetic History - Height & Weight Height: 167.64 cm Weight: 61.235 kg BMI: 21.80 - Anesthesia History Hx Anesthesia Complications (with details): None Family Hx Anesthesia Complications: None - Medications In the Past 6 Months the Patient Has Taken: Antibiotics, Arthritis Medication, Thyroid Medication - Tobacco/Alcohol/Drug Use Smoking Status: Never smoked Hx Drug/Substance Abuse: No Alcohol Use: Yes - Prior Surgeries/Hospitalizations Prior Surgeries: None in last year Prior Medical Hospitalizations: 2015 - Pulmonary History ECT Hx Asthma: No Hx Abnormal Chest X-Ray: No Hx Oxygen in Use at Home: No - Cardiovascular History Hx Hypertension: No Currently Uses Hypertension Medication: No Hx Arrhythmias: No Hx Palpitations: No Hx Chest Pain: No Hx Coronary Artery / Peripheral Vascular Disease: No Hx Blood Clot: No - Neurologic History Hx Cerebrovascular Accident: No Hx CT Scan Or MRI Of The Brain: Yes Hx Epilepsy, Convulsions, Seizures, Or Blackouts: No Hx Frequent Or Severe Headaches: No Hx Numbness: No Hx Neurologic Disorder: No Neurologic History Comment: CT in 2014 - Dental History Current Dental Issues: None - Endocrine History Hx Diabetes: No Current Daily Insulin Injections: No Hx Thyroid Problems: Yes Endocrine History Comment: Hypothyroid - Renal/Urologic History Hx Renal Disorders: No Hx Urinary Tract Problems: No - Liver History Hx Hepatic Disorders: No - Cancer History Hx Cancer: No - Hematology History Hx Unexplained Bleeding Of Any Type: No Hx Ease Of Bruising: No Hx Anemia: No - Gastrointestinal History Hx Gastroesophogeal Reflux Disease: No Hx Ulcers: No Hx Hiatal Hernia: No Hx Difficulty Swallowing: No - Musculoskeletal Hisory Hx Chronic Pain: Yes Chronic Pain Location: Back Hx Arthritis: Yes Musculoskeletal History Comment: Takes Celebrex for back arthritis - Opthalmic History Hx Glaucoma: No Visual Assistive Devices: None Hx Opthalmic Disorders: No - Other Health History Physical Disabililty: No Recent Cough, Cold, or Fever: No Significant Weight Loss In The Last 4 Months: No Possible the Patient Might be : No
--- NOTE | 2018-06-29 08:09 | PDECTPN ---
ECT Progress Note Patient Problems: Problems Problem Status Onset Code Depression Acute F32.9 Suicidal ideation Acute R45.851 Date: 06/29/18 ECT provider: Murtaza More Anesthesia: Beauchristiano [place] Stimulus dose (%): 85 Pulse width: 0.5 ECT EMG (sec): 22 ECT EEG (sec): 27 ECT treatment type: bilateral QIDS-SR Total Score: 20 QIDS-SR Question #12 Score: 2 MMSE Total Score (Max = 21): 20 Next ECT date: 07/02/18 Next ECT time: 07:30 Home medications: Medication Instructions Recorded Levothyroxine [Synthroid 150 mcg 112 mcg PO DAILY06 03/20/18 (*)] [place] Carbonate [[place] 300 mg PO DAILY AT 10AM 03/20/18 Carbonate Cap 300 mg (*)] Venlafaxine Xr [Effexor Xr 75MG 75 mg PO DAILY 04/18/18 (*)] Hydroxyzine Pamoate [Vistaril] 50 mg PO Q6HRS PRN 06/25/18 [place] Carbonate ER [Eskalith Cr 450 mg PO QID 06/25/18 450 mg (*)] Loperamide HCl [Imodium 2 mg (*)] 2 mg PO PRN PRN 06/25/18 Mirtazapine [Remeron] 30 mg PO HS 06/25/18 Venlafaxine Xr [Effexor Xr] 150 mg PO DAILY 06/25/18 busPIRone [Buspar (*)] 10 mg PO BID 06/25/18 clonazePAM [klonoPIN (*)] 1 mg PO TID PRN 06/25/18 Medication review: completed Current treatment plan: acute phase Treatment plan frequency: 3 times per week ECT narrative: Pt is seen for continued acute course treatment. She reports feeling "a little better" today. More hopeful though still quite negativistic. Appetite is low, sleep is adequate. Remains on the fringes of the milieu. MSE: Affect is dysphoric, restricted, stable, approp. Mood is "depressed." TP is linear. TC reveals no psychosis. SI persists.
[2018-06-29] MEDS: VENLAFAXINE XR 150 MG CAP PO SCH (09:27)
[2018-06-29] MEDS: LEVOTHYROXINE 112 MCG TAB PO SCH (09:27)
[2018-06-29] MEDS: LITHIUM CARBONATE ER 300 MG TAB PO SCH (09:27)
[2018-06-29] MEDS: clonazePAM 0.5 MG TAB PO SCH ×3 (09:28→18:01)
--- NOTE | 2018-06-29 16:00 | ASMTCMCOM ---
CM Note CM Note Notes: The patient has an appointment to discuss disability scheduled for July 25 @ 10:30. The patient received ECT tx today. She reported feeling "tired." As part of her discharge plan, the patient is contemplating moving to [place], [place] to strengthen her support system. Date Signed: 06/29/2018 01:56 PM Electronically Signed By:Radha Lowery
[2018-06-29] MEDS: LITHIUM CARBONATE ER 450 MG TAB PO SCH (20:54)
[2018-06-29] MEDS: MIRTAZAPINE 30 MG TAB PO SCH (20:54)
[2018-06-30] MEDS: clonazePAM 0.5 MG TAB PO SCH ×3 (08:33→18:28)
[2018-06-30] MEDS: VENLAFAXINE XR 150 MG CAP PO SCH (08:33)
[2018-06-30] MEDS: LITHIUM CARBONATE ER 300 MG TAB PO SCH (08:33)
[2018-06-30] MEDS: LEVOTHYROXINE 112 MCG TAB PO SCH (09:53)
--- NOTE | 2018-06-30 19:03 | SOAPPROG ---
SOAP Progress Note Assessment/Plan: Assessment: 37yo CF with BMD 2, predominantly depressed. Admitted for ECT. 06/30/18 14:02 slept 8hr. reading book in her room. reports continued depressed mood. has worries about her kids, job. does still have hopeless feelings. +passive SI. states ECT was helpful in the past. wondering how many more ECT treatments. does pray. not interested in spiritual consult. notes STM decr after ECT, states this happened last time but improved. MSE: calm, nml speech, good e/c. blunted/restricted affect, depr mood. TP linear.no psychosis. denied SI plan/intent. i/j fair. PLAN: cont current meds, ECT Objective: Vital Signs Temp Pulse Resp BP Pulse Ox 36.9 C 69 15 117/65 96 06/30/18 06:00 06/30/18 06:00 06/30/18 06:00 06/30/18 06:00 06/30/18 06:00 Laboratory Results 06/27/18 06:50 06/25/18 13:15 06/29/18 06/30/18 07/01/18 05:59 05:59 05:59 Intake Total 1000 Balance 1000 - Time Spent With Patient Time Spent With Patient: 15min - Pending Discharge Pending Discharge Within 24 Hours: No ICD10 Worksheet Patient Problems: Problems Problem Status Onset Depression Acute Suicidal ideation Acute
[2018-06-30] MEDS: LITHIUM CARBONATE ER 450 MG TAB PO SCH (20:38)
[2018-06-30] MEDS: MIRTAZAPINE 30 MG TAB PO SCH (20:39)
[2018-07-01] MEDS: clonazePAM 0.5 MG TAB PO SCH ×3 (09:02→17:28)
[2018-07-01] MEDS: LEVOTHYROXINE 112 MCG TAB PO SCH (09:02)
[2018-07-01] MEDS: VENLAFAXINE XR 150 MG CAP PO SCH (09:03)
[2018-07-01] MEDS: LITHIUM CARBONATE ER 300 MG TAB PO SCH (09:03)
--- NOTE | 2018-07-01 14:26 | ASMTCMCOM ---
CM Note CM Note Notes: Pt. reports feeling "okay". Pt. stated she slept "fine". Pt. reports having ECT yesterday, adding it "went okay". Pt. reports getting enough to eat and attending groups. Pt. reports having not taken her medications yet this morning. Pt. denies having any issues while on the unit. Pt. stated she has ECT tomorrow, but is unsure of the time. Pt. denied SI, HI, AVH and paranoia. Pt. stated she is unsure how many ECT treatments she will get, but stated "I'd like to go home". Pt. presents as alert, calm, flat affect, good eye contact, somewhat passive answers, groomed and cooperative. Staff report pt. sleeping 7 hours and being medication compliant. Pt. is scheduled for ECT at 8:00am tomorrow. Pt. does not have any follow up appointments at this time. CC to speak with MD Monday about pt's expected length of stay. Date Signed: 07/01/2018 02:25 PM Electronically Signed By:Anastasiia Shaikh
[2018-07-01] MEDS: LITHIUM CARBONATE ER 450 MG TAB PO SCH (20:16)
[2018-07-01] MEDS: MIRTAZAPINE 30 MG TAB PO SCH (20:42)
--- NOTE | 2018-07-01 23:33 | SOAPPROG ---
SOAP Progress Note Assessment/Plan: Assessment: 37yo CF with BMD 2, predominantly depressed. Admitted for ECT. 06/30/18 14:02 slept 8hr. reading book in her room. reports continued depressed mood. has worries about her kids, job. does still have hopeless feelings. +passive SI. states ECT was helpful in the past. wondering how many more ECT treatments. does pray. not interested in spiritual consult. notes STM decr after ECT, states this happened last time but improved. MSE: calm, nml speech, good e/c. blunted/restricted affect, depr mood. TP linear.no psychosis. denied SI plan/intent. i/j fair. PLAN: cont current meds, ECT 07/01/18 15:10 slept 7hr. attending gps. visible in milieu, watching TV with peers but not noted to be engaging with peers. continues depressed, passive SI but no plan/intent to harm self. aware of planned ECT this week and without objections. had reported it helpful in past. denied physical complaints. no new issues/concerns. MSE:good ec, +mydriasis but bilat/equal. states this is normal for her. speech low vol nml rate, articulate. dysphoric, restricted affect, mood depressed. thoughts reality-based, goal-directed responses. no acute SI. no psychosis noted. PLAN: cont current meds- Effexor, [place], Klonopin, Mirtazapine, synthroid, cont acute ECT consider check Li+level altho with no reported s/e and no evid of s/e clinically Objective: Vital Signs Temp Pulse Resp BP Pulse Ox 37.0 C 82 14 118/58 L 99 07/01/18 06:00 07/01/18 06:00 07/01/18 06:00 07/01/18 06:00 07/01/18 06:00 Laboratory Results 06/27/18 06:50 06/25/18 13:15 06/30/18 07/01/18 07/02/18 05:59 05:59 05:59 Intake Total 1000 Balance 1000 - Time Spent With Patient Time Spent With Patient: 15min - Pending Discharge Pending Discharge Within 24 Hours: No ICD10 Worksheet Patient Problems: Problems Problem Status Onset Depression Acute Suicidal ideation Acute
[2018-07-02] MEDS ORDERED: ONDANSETRON DISINTEGRATING 4 MG TAB ONE (07:36)
[2018-07-02] MEDS ORDERED: CITRIC ACID/SODIUM CITRATE 30 ML UDCUP ONE (07:36)
[2018-07-02] MEDS ORDERED: CITRIC ACID/SODIUM CITRATE 30 ML UDCUP PO PRN (08:15)
[2018-07-02] MEDS ORDERED: NS 1,000 ML IV PRN (08:15)
[2018-07-02] MEDS ORDERED: ONDANSETRON DISINTEGRATING 4 MG TAB PO PRN (08:15)
--- NOTE | 2018-07-02 08:22 | PDANEPAE ---
ANE Past Medical History - Cardiovascular History Hx Hypertension: No Hx Arrhythmias: No Hx Chest Pain: No Hx Coronary Artery / Peripheral Vascular Disease: No Hx Palpitations: No - Pulmonary History Hx Oxygen in Use at Home: No Hx Sleep Apnea: No - Neurologic History Hx Cerebrovascular Accident: No - Endocrine History Hx Diabetes: No Obesity: no - Renal History Hx Renal Disorders: No - Liver History Hx Hepatic Disorders: No - Cancer History Hx Cancer: No - Chronic Pain History Chronic Pain: No - Surgical History Prior Surgeries: None in last year ANE Review of Systems Review of Systems: ANE Patient History - Allergies Allergies/Adverse Reactions: stan seeds Allergy (Uncoded 03/20/18 19:08) - Home Medications Home medications: home medication list seen and reviewed Home Medications: Levothyroxine [Synthroid 150 mcg (*)] 112 mcg PO DAILY06 03/20/18 [Last Taken ] [place] Carbonate [[place] Carbonate Cap 300 mg (*)] 300 mg PO DAILY AT 10AM 07/01 [Last Taken 03/20/18 12:00] Venlafaxine Xr [Effexor Xr 75MG (*)] 75 mg PO DAILY 04/18/18 [Last Taken Unknown ] Hydroxyzine Pamoate [Vistaril] 50 mg PO Q6HRS PRN 06/25/18 [Last Taken Unknown] [place] Carbonate ER [Eskalith Cr 450 mg (*)] 450 mg PO QID 06/25/18 [Last Taken Unknown] Loperamide HCl [Imodium 2 mg (*)] 2 mg PO PRN PRN 06/25/18 [Last Taken Unknown] Mirtazapine [Remeron] 30 mg PO HS 06/25/18 [Last Taken Unknown] Venlafaxine Xr [Effexor Xr] 150 mg PO DAILY 06/25/18 [Last Taken Unknown] busPIRone [Buspar (*)] 10 mg PO BID 06/25/18 [Last Taken Unknown] clonazePAM [klonoPIN (*)] 1 mg PO TID PRN 06/25/18 [Last Taken Unknown] - NPO status NPO Status: no food or drink >8 hours - Anes Hx Anes Hx: no prior problems - Smoking Hx Smoking Status: Never smoked - Family Anes Hx Family Hx Anesthesia Complications: None ANE Labs/Vital Signs - Labs Result Diagrams: 06/27/18 06:50 05/13/19 13:15 - Vital Signs Blood Pressure: 132/77 Heart Rate: 75 Respiratory Rate: 16 O2 Sat (%): 100 Height: 167.64 cm Weight: 61.371 kg ANE Physical Exam - Airway Neck exam: FROM Mallampati Score: Class 1 Mouth exam: normal dental/mouth exam - Pulmonary Pulmonary: no respiratory distress, no rales or rhonchi, clear to auscultation - Cardiovascular Cardiovascular: regular rate and rhythym, no murmur, rub, or gallop - ASA Status ASA Status: II ANE Anesthesia Plan Anesthesia Plan: GA with mask
--- NOTE | 2018-07-02 08:38 | POSTANESTH ---
Post Anesthetic Evaluation Cardiovascular Status: Normal, Stable, Similar to Pre-Op Cond Respiratory Status: Normal, Stable, Similar to Pre-op Cond. Level of Consciousness/Mental Status: Unconscious Complications Possibly Related to Anesthesia: None Noted
--- NOTE | 2018-07-02 09:03 | PDECTPN ---
ECT Progress Note Patient Problems: Problems Problem Status Onset Code Depression Acute F32.9 Suicidal ideation Acute R45.851 Date: 07/02/18 ECT provider: Shine Allen Anesthesia: Lee Navarrete Stimulus dose (%): 90 Pulse width: 0.5 ECT EMG (sec): 29 ECT EEG (sec): 32 ECT treatment type: bilateral QIDS-SR Total Score: 8 QIDS-SR Question #12 Score: 1 MMSE Total Score (Max = 21): 19 Next ECT date: 07/04/18 Next ECT time: 07:30 O/P psychiatrist follow up with DrIsabella: Tyrese [place] medications: Medication Instructions Recorded Levothyroxine [Synthroid 150 mcg 112 mcg PO DAILY06 03/20/18 (*)] [place] Carbonate [[place] 300 mg PO DAILY AT 10AM 03/20/18 Carbonate Cap 300 mg (*)] Venlafaxine Xr [Effexor Xr 75MG 75 mg PO DAILY 04/18/18 (*)] Hydroxyzine Pamoate [Vistaril] 50 mg PO Q6HRS PRN 06/25/18 [place] Carbonate ER [Eskalith Cr 450 mg PO QID 06/25/18 450 mg (*)] Loperamide HCl [Imodium 2 mg (*)] 2 mg PO PRN PRN 06/25/18 Mirtazapine [Remeron] 30 mg PO HS 06/25/18 Venlafaxine Xr [Effexor Xr] 150 mg PO DAILY 06/25/18 busPIRone [Buspar (*)] 10 mg PO BID 06/25/18 clonazePAM [klonoPIN (*)] 1 mg PO TID PRN 06/25/18 Current treatment plan: acute phase Treatment plan frequency: 3 times per week ECT narrative: REVIEWED Psych notes from this and last hospital stay, as well as H and Ps and Labs. Pt has had some relief after a few inpatient acute, B ECTs with QIDS down to 8/ from 01/05. Complains today of an exacerbation over last day of her chronic diarrhea. SHe has subjective appreciation of feeling less dysphoric and less intense rumination/SI. No med changes. Labs reveal elevated Total Bili. Will re check CMP and a few organic labs. Her diarrhea started well after [place] started. Level was 0.7 in 05/01. Will hold Li for rest of acute course to aid GI symptoms and to decrease cognitive impact of ECT. Will restart at same dose once acute ECT done. Counselled her to do mECT this time, if possible, for up to (if not beyond) six months. Affect constricted, speech impov and monotone, has a bit of a perplexed look, yet is A and O x 3. Knew her meds. Pos SI, without intensity or intent/plan at moment. PMR. 1) check labs 2) cont acute B ECT thru this week 3) hold Li during acute ECT 4) GI work up once home. R/O [place] issues vs IBS-D. 5) Consider some other med options such as add Lamotrigine, and possibly d/c effexor (using Prozac temporarily to circumvent seratonin discontinuation syndrome 6) CC to establish social support that would allow for mECT.
[2018-07-02] MEDS: clonazePAM 0.5 MG TAB PO SCH ×3 (09:39→17:41)
[2018-07-02] MEDS: LEVOTHYROXINE 112 MCG TAB PO SCH (09:40)
[2018-07-02] MEDS: VENLAFAXINE XR 150 MG CAP PO SCH (09:40)
[2018-07-02] MEDS: MIRTAZAPINE 30 MG TAB PO SCH (20:35)
[2018-07-03] MEDS: VENLAFAXINE XR 150 MG CAP PO SCH (07:56)
[2018-07-03] MEDS: LEVOTHYROXINE 112 MCG TAB PO SCH (07:56)
[2018-07-03] MEDS: clonazePAM 0.5 MG TAB PO SCH ×3 (07:56→17:32)
--- NOTE | 2018-07-03 11:22 | ASMTCMCOM ---
CM Note CM Note Notes: CC spoke to client briefly, Client suggest she is feeling "ok today." She rates her current feelings of anxiety /10, Depression /10, while suggesting no issues with S/I or AVH. Client notes that she would like to return to [facility] at this point and would like to discharge on Monday. Client presents as clean, semi-alert, disorganized at times, while being organized at times. Recommended to continue current treatment with Dr. Allen. Date Signed: 07/03/2018 11:20 AM Electronically Signed By:Jimi Wisdom
--- NOTE | 2018-07-03 15:24 | SOAPPROG ---
SOAP Progress Note Assessment/Plan: Assessment: Likely Bipolar spectrum TRD, with recent mixed and rapid cycling features. Alexythymia. Pt appears constricted in affect, sl impov and monotone in speech and with PRM. A bit of a vacant stare, reflective of ECT SE vs depression. Feels no subjective improvement despite fairly robust change in QIDS score. Left VM with Dr Tyrese arango ideas around med changes (ie, LMT addition, d/c effexor using long 1/2 life SSRI fluoxetine) and provided psychoeducation to pt about both issues. She states that she wishes to d/c home by Monday in "order to get back to work " offering up "financial reasons" as her urgency. I counselled her about the high likelihood of relapse in patients who d/c acute ECT far from remission, but that, if we are edith, she might truly be done by ECT #6 (monday). Will solicit help of CC re who might provide supervision for her upon d/c and whether there is a chance she could return for the much recommended maint ECT. labs reviewed. Re-do of LFTs reveal T Bili wnl. Vit d, vit B 12, Hs-crp, Hg aic all wnl. Plan: 07/03/18 15:19 07/03/18 15:24 Objective: Vital Signs Temp Pulse Resp BP Pulse Ox 36.8 C 78 14 109/55 L 97 07/03/18 06:00 07/03/18 06:00 07/03/18 06:00 07/03/18 06:00 07/03/18 06:00 Laboratory Results 06/27/18 06:50 07/03/18 07:00 07/02/18 07/03/18 07/04/18 05:59 05:59 05:59 Intake Total 1000 Balance 1000 Laboratory Tests 06/26/18 07/03/18 07/03/18 13:15 07:00 07:00 Hemoglobin A1c 4.8 Total Bilirubin 1.0 AST 17 ALT 39 C-React Prot High Sens 0.4 Albumin 3.9 Vitamin B12 997 H 25-OH Vitamin D Total 40.2 TSH 4.440 - Time Spent With Patient Time Spent With Patient: 40 min ICD10 Worksheet Patient Problems: Problems Problem Status Onset Depression Acute Suicidal ideation Acute
[2018-07-03] MEDS: MIRTAZAPINE 30 MG TAB PO SCH (20:56)
[2018-07-04] MEDS ORDERED: CITRIC ACID/SODIUM CITRATE 30 ML UDCUP ONE (07:03)
[2018-07-04] MEDS ORDERED: ONDANSETRON DISINTEGRATING 4 MG TAB ONE (07:03)
[2018-07-04] MEDS: clonazePAM 0.5 MG TAB PO SCH ×3 (07:29→17:54)
[2018-07-04] MEDS ORDERED: SCOPOLAMINE HYDROBROMIDE 1 MG/3 DAYS PATCH TD ONE ×2 (07:59)
--- NOTE | 2018-07-04 08:01 | PDANEPAE ---
ECT Pre Anesthetic Evaluation Allergies/Adverse Reactions: stan seeds Allergy (Uncoded 03/20/18 19:08) Patient ID confirmed: Yes H&P reviewed: Yes Pre-anesthetic history reviewed: Yes Heart: regular rate and rhythym, no murmur, rub, or gallop Lungs: no respiratory distress, no rales or rhonchi, clear to auscultation Mallampati Score: Class 1 ASA Status: II Home Medications: Medication Instructions Recorded Levothyroxine [Synthroid 150 mcg 112 mcg PO DAILY06 03/20/18 (*)] [place] Carbonate [[place] 300 mg PO DAILY AT 10AM 03/20/18 Carbonate Cap 300 mg (*)] Venlafaxine Xr [Effexor Xr 75MG 75 mg PO DAILY 04/18/18 (*)] Hydroxyzine Pamoate [Vistaril] 50 mg PO Q6HRS PRN 06/25/18 [place] Carbonate ER [Eskalith Cr 450 mg PO QID 06/25/18 450 mg (*)] Loperamide HCl [Imodium 2 mg (*)] 2 mg PO PRN PRN 06/25/18 Mirtazapine [Remeron] 30 mg PO HS 06/25/18 Venlafaxine Xr [Effexor Xr] 150 mg PO DAILY 06/25/18 busPIRone [Buspar (*)] 10 mg PO BID 06/25/18 clonazePAM [klonoPIN (*)] 1 mg PO TID PRN 06/25/18 Patient interviewed: Yes Patient examined: Yes See previous record: Yes Anesthetic plan discussed with patient: Yes Anesthetic risks discussed with patient: Yes ECT Pre-Anesthetic History - Height & Weight Height: 167.64 cm Weight: 61.371 kg BMI: 21.85 - Anesthesia History Hx Anesthesia Complications (with details): None Family Hx Anesthesia Complications: None - Medications In the Past 6 Months the Patient Has Taken: Antibiotics, Arthritis Medication, Thyroid Medication - Tobacco/Alcohol/Drug Use Smoking Status: Never smoked Hx Drug/Substance Abuse: No Alcohol Use: Yes - Prior Surgeries/Hospitalizations Prior Surgeries: None in last year Prior Medical Hospitalizations: 2014 - Pulmonary History ECT Hx Asthma: No Hx Abnormal Chest X-Ray: No Hx Oxygen in Use at Home: No - Cardiovascular History Hx Hypertension: No Currently Uses Hypertension Medication: No Hx Arrhythmias: No Hx Palpitations: No Hx Chest Pain: No Hx Coronary Artery / Peripheral Vascular Disease: No Hx Blood Clot: No - Neurologic History Hx Cerebrovascular Accident: No Hx CT Scan Or MRI Of The Brain: Yes Hx Epilepsy, Convulsions, Seizures, Or Blackouts: No Hx Frequent Or Severe Headaches: No Hx Numbness: No Hx Neurologic Disorder: No Neurologic History Comment: CT in 2014 - Dental History Current Dental Issues: None - Endocrine History Hx Diabetes: No Current Daily Insulin Injections: No Hx Thyroid Problems: Yes Endocrine History Comment: Hypothyroid - Renal/Urologic History Hx Renal Disorders: No Hx Urinary Tract Problems: No - Liver History Hx Hepatic Disorders: No - Cancer History Hx Cancer: No - Hematology History Hx Unexplained Bleeding Of Any Type: No Hx Ease Of Bruising: No Hx Anemia: No - Gastrointestinal History Hx Gastroesophogeal Reflux Disease: No Hx Ulcers: No Hx Hiatal Hernia: No Hx Difficulty Swallowing: No - Musculoskeletal Hisory Hx Chronic Pain: Yes Chronic Pain Location: Back Hx Arthritis: Yes Musculoskeletal History Comment: Takes Celebrex for back arthritis - Opthalmic History Hx Glaucoma: No Visual Assistive Devices: None Hx Opthalmic Disorders: No - Other Health History Physical Disabililty: No Recent Cough, Cold, or Fever: No Significant Weight Loss In The Last 4 Months: No Possible the Patient Might be : No
[2018-07-04] MEDS ORDERED: CITRIC ACID/SODIUM CITRATE 30 ML UDCUP PO PRN (08:26)
[2018-07-04] MEDS ORDERED: NS 1,000 ML IV PRN (08:26)
[2018-07-04] MEDS ORDERED: ONDANSETRON DISINTEGRATING 4 MG TAB PO PRN (08:26)
[2018-07-04] MEDS ORDERED: NALOXONE HCL 0.4 MG/ML INJ IVP PRN (08:32)
[2018-07-04] MEDS ORDERED: PROMETHAZINE HCL 25 MG TAB PO PRN (08:32)
[2018-07-04] MEDS ORDERED: HYDROCODONE/APAP 5/325 TAB PO PRN ×2 (08:32→15:13)
[2018-07-04] MEDS ORDERED: VENLAFAXINE XR 150 MG CAP PO SCH (08:34)
--- NOTE | 2018-07-04 08:43 | PDECTPN ---
ECT Progress Note Patient Problems: Problems Problem Status Onset Code Depression Acute F32.9 Suicidal ideation Acute R45.851 Date: 07/04/18 Treatment#: 5 ECT provider: Shine Allen Anesthesia: Lee Navarrete Stimulus dose (%): 95 Pulse width: 0.5 ECT EMG (sec): 19 ECT EEG (sec): 23 ECT treatment type: bilateral QIDS-SR Total Score: 7 QIDS-SR Question #12 Score: 1 MMSE Total Score (Max = 21): 20 Next ECT date: 07/06/18 Next ECT time: 07:15 O/P psychiatrist follow up with DrIsabella: Tyrese O/P psychiatrist follow up: phone, voice message Home medications: Medication Instructions Recorded Levothyroxine [Synthroid 150 mcg 112 mcg PO DAILY06 03/20/18 (*)] [place] Carbonate [[place] 300 mg PO DAILY AT 10AM 03/20/18 Carbonate Cap 300 mg (*)] Venlafaxine Xr [Effexor Xr 75MG 75 mg PO DAILY 04/18/18 (*)] Hydroxyzine Pamoate [Vistaril] 50 mg PO Q6HRS PRN 06/25/18 [place] Carbonate ER [Eskalith Cr 450 mg PO QID 06/25/18 450 mg (*)] Loperamide HCl [Imodium 2 mg (*)] 2 mg PO PRN PRN 06/25/18 Mirtazapine [Remeron] 30 mg PO HS 06/25/18 Venlafaxine Xr [Effexor Xr] 150 mg PO DAILY 06/25/18 busPIRone [Buspar (*)] 10 mg PO BID 06/25/18 clonazePAM [klonoPIN (*)] 1 mg PO TID PRN 06/25/18 Current treatment plan: acute phase Treatment plan frequency: 3 times per week ECT narrative: 07/02/18 REVIEWED Psych notes from this and last hospital stay, as well as H and Ps and Labs. Pt has had some relief after a few inpatient acute, B ECTs with QIDS down to 8/ from 01/05. Complains today of an exacerbation over last day of her chronic diarrhea. SHe has subjective appreciation of feeling less dysphoric and less intense rumination/SI. No med changes. Labs reveal elevated Total Bili. Will re check CMP and a few organic labs. Her diarrhea started well after [place] started. Level was 0.7 in 05/01. Will hold Li for rest of acute course to aid GI symptoms and to decrease cognitive impact of ECT. Will restart at same dose once acute ECT done. Counselled her to do mECT this time, if possible, for up to (if not beyond) six months. Affect constricted, speech impov and monotone, has a bit of a perplexed look, yet is A and O x 3. Knew her meds. Pos SI, without intensity or intent/plan at moment. PMR. 1) check labs 2) cont acute B ECT thru this week 3) hold Li during acute ECT 4) GI work up once home. R/O Choley issues vs IBS-D. 5) Consider some other med options such as add Lamotrigine, and possibly d/c effexor (using Prozac temporarily to circumvent seratonin discontinuation syndrome 6) CC to establish social support that would allow for mECT. 07/04/18 Spoke at length with Dr Xiong who confirms hi likelihood of bipolar spectrum illness, with his own objective observation of hypomanic behaviors. Likely,, not since Feb however. He is in agreement re needing some med changes as previous regimen did not help adequately, clearly. He agrees with using Prozac to help d/c short 1/2 life effexor and to start LMT. Discussed both with pt who provided I/C to do these changes. She understands the risk of rash/Boyle Luis Armando and will call MD immediately if she notes rash, fever, mouth sores, etc. Handout on drug given. MTHFR drawn today. Affect still constricted but able to evince a smile today. Still impov speech. Poor insight and judgement seen in her wish to d/c home on monday after 6 acute ECTs. I have been informed by RN that she may have her own car her. She will NOT be able to drive self home on an ECT day, after 6 acute bilateral tx. I will insist she get a friend/family member to come her and drive her home, or otherwise insist she stay over weekend to convalesce from ECT related SEs. Further, it is unclear whether she will have had enough acute ECT to be truly better, or only partially remitted, which would greatly enhance risk of relatively quick relapse. QIDS is better than upon admission at 08/13, but still some SI, anxiety, rumination and dysphoria
[2018-07-04] MEDS: LEVOTHYROXINE 112 MCG TAB PO SCH (09:26)
[2018-07-04] MEDS: FLUoxetine 20 MG CAP PO SCH (09:26)
[2018-07-04] MEDS: VENLAFAXINE XR 75 MG CAP PO SCH (10:32)
--- NOTE | 2018-07-04 11:09 | ASMTCMCOM ---
CM Note CM Note Notes: CC was able to speak to client about possible discharge, etc. Client noted, that she drove from [place], [place] to [facility] for treatment. CC reinforced with client that due to current treatment plans that client would likely have to stay in-patient through (most) of the weekend due having to be observed after ECT treatment, etc. Client suggests that she still would like for her last treatment to be on Monday. Additionally, client notes that her support system in [place] includes her ex- (Bryn) in which she signed an EARL, in case Doctor/CC needed to contact him regarding any possible surpervision, etc. Client was perceived as understanding that she would have to stay in -patient for additional days for observation as well as agreed that she should not drive after having ECT treatment. CC will reach out to out-patient provider for any follow up appts as well as relay information to in-patient provider, etc. Date Signed: 07/04/2018 11:08 AM Electronically Signed By:Jimi Wisdom. .Sabina,RIsabellaP
[2018-07-04] MEDS ORDERED: IBUPROFEN 600 MG TAB PO PRN (15:13)
[2018-07-04] MEDS: lamoTRIgine 25 MG TAB PO SCH (20:17)
[2018-07-04] MEDS: MIRTAZAPINE 30 MG TAB PO SCH (20:17)
[2018-07-05] MEDS: VENLAFAXINE XR 75 MG CAP PO SCH (07:41)
[2018-07-05] MEDS: clonazePAM 0.5 MG TAB PO SCH ×3 (07:41→17:14)
[2018-07-05] MEDS: LEVOTHYROXINE 112 MCG TAB PO SCH (07:41)
[2018-07-05] MEDS: FLUoxetine 20 MG CAP PO SCH (07:42)
--- NOTE | 2018-07-05 13:21 | ASMTCMCOM ---
CM Note CM Note Notes: Ct. reported that she spoke with her mom who is coming to town on Sun. Ct. requested to be discharge on Sun. afternoon when mom gets here. CC alerted Dr. Allen to this plan. Date Signed: 07/05/2018 01:18 PM Electronically Signed By:Caitlin Stroud.[employer]
[2018-07-05] MEDS: lamoTRIgine 25 MG TAB PO SCH (17:39)
[2018-07-05] MEDS: MIRTAZAPINE 30 MG TAB PO SCH (20:03)
[2018-07-06] MEDS ORDERED: ONDANSETRON DISINTEGRATING 4 MG TAB PO PRN (04:00)
[2018-07-06] MEDS ORDERED: CITRIC ACID/SODIUM CITRATE 30 ML UDCUP PO PRN (04:00)
[2018-07-06] MEDS ORDERED: NS 1,000 ML IV PRN (04:00)
[2018-07-06] MEDS ORDERED: SCOPOLAMINE HYDROBROMIDE 1 MG/3 DAYS PATCH TD ONE (06:54)
--- NOTE | 2018-07-06 07:38 | PDANEPAE ---
ECT Pre Anesthetic Evaluation Allergies/Adverse Reactions: stan seeds Allergy (Uncoded 03/20/18 19:08) Patient ID confirmed: Yes H&P reviewed: Yes Pre-anesthetic history reviewed: Yes Heart: regular rate and rhythym, no murmur, rub, or gallop Lungs: no respiratory distress, no rales or rhonchi, clear to auscultation Mallampati Score: Class 1 ASA Status: II Home Medications: Medication Instructions Recorded Levothyroxine [Synthroid 150 mcg 112 mcg PO DAILY06 03/20/18 (*)] [place] Carbonate [[place] 300 mg PO DAILY AT 10AM 03/20/18 Carbonate Cap 300 mg (*)] Venlafaxine Xr [Effexor Xr 75MG 75 mg PO DAILY 04/18/18 (*)] Hydroxyzine Pamoate [Vistaril] 50 mg PO Q6HRS PRN 06/25/18 [place] Carbonate ER [Eskalith Cr 450 mg PO QID 06/25/18 450 mg (*)] Loperamide HCl [Imodium 2 mg (*)] 2 mg PO PRN PRN 06/25/18 Mirtazapine [Remeron] 30 mg PO HS 06/25/18 Venlafaxine Xr [Effexor Xr] 150 mg PO DAILY 06/25/18 busPIRone [Buspar (*)] 10 mg PO BID 06/25/18 clonazePAM [klonoPIN (*)] 1 mg PO TID PRN 06/25/18 Patient interviewed: Yes Patient examined: Yes See previous record: Yes Anesthetic plan discussed with patient: Yes Anesthetic risks discussed with patient: Yes ECT Pre-Anesthetic History - Height & Weight Height: 167.64 cm Weight: 61.371 kg BMI: 21.85 - Anesthesia History Hx Anesthesia Complications (with details): None Family Hx Anesthesia Complications: None - Medications In the Past 6 Months the Patient Has Taken: Antibiotics, Arthritis Medication, Thyroid Medication - Tobacco/Alcohol/Drug Use Smoking Status: Never smoked Hx Drug/Substance Abuse: No Alcohol Use: Yes - Prior Surgeries/Hospitalizations Prior Surgeries: None in last year Prior Medical Hospitalizations: 2014 - Pulmonary History ECT Hx Asthma: No Hx Abnormal Chest X-Ray: No Hx Oxygen in Use at Home: No - Cardiovascular History Hx Hypertension: No Currently Uses Hypertension Medication: No Hx Arrhythmias: No Hx Palpitations: No Hx Chest Pain: No Hx Coronary Artery / Peripheral Vascular Disease: No Hx Blood Clot: No - Neurologic History Hx Cerebrovascular Accident: No Hx CT Scan Or MRI Of The Brain: Yes Hx Epilepsy, Convulsions, Seizures, Or Blackouts: No Hx Frequent Or Severe Headaches: No Hx Numbness: No Hx Neurologic Disorder: No Neurologic History Comment: CT in 2014 - Dental History Current Dental Issues: None - Endocrine History Hx Diabetes: No Current Daily Insulin Injections: No Hx Thyroid Problems: Yes Endocrine History Comment: Hypothyroid - Renal/Urologic History Hx Renal Disorders: No Hx Urinary Tract Problems: No - Liver History Hx Hepatic Disorders: No - Cancer History Hx Cancer: No - Hematology History Hx Unexplained Bleeding Of Any Type: No Hx Ease Of Bruising: No Hx Anemia: No - Gastrointestinal History Hx Gastroesophogeal Reflux Disease: No Hx Ulcers: No Hx Hiatal Hernia: No Hx Difficulty Swallowing: No - Musculoskeletal Hisory Hx Chronic Pain: Yes Chronic Pain Location: Back Hx Arthritis: Yes Musculoskeletal History Comment: Takes Celebrex for back arthritis - Opthalmic History Hx Glaucoma: No Visual Assistive Devices: None Hx Opthalmic Disorders: No - Other Health History Physical Disabililty: No Recent Cough, Cold, or Fever: No Significant Weight Loss In The Last 4 Months: No Possible the Patient Might be : No
--- NOTE | 2018-07-06 07:50 | SOAPPROG ---
SOAP Progress Note Assessment/Plan: Assessment: Likely Bipolar spectrum TRD, with recent mixed and rapid cycling features. Alexythymia. Pt appears constricted in affect, sl impov and monotone in speech and with PRM. A bit of a vacant stare, reflective of ECT SE vs depression. Feels no subjective improvement despite fairly robust change in QIDS score. Left VM with Dr Tyrese arango ideas around med changes (ie, LMT addition, d/c effexor using long 1/2 life SSRI fluoxetine) and provided psychoeducation to pt about both issues. She states that she wishes to d/c home by Monday in "order to get back to work " offering up "financial reasons" as her urgency. I counselled her about the high likelihood of relapse in patients who d/c acute ECT far from remission, but that, if we are edith, she might truly be done by ECT #6 (monday). Will solicit help of CC re who might provide supervision for her upon d/c and whether there is a chance she could return for the much recommended maint ECT. labs reviewed. Re-do of LFTs reveal T Bili wnl. Vit d, vit B 12, Hs-crp, Hg aic all wnl. Plan: 07/03/18 15:19 07/03/18 15:24 07/05/18 Late note from 07/05. met with pt on unit and discussed case with CC. Emphasized that pt would be able to drive home alone safely after 6 acute ECT treatments for at least a few days and that a loved one's supervision, beyond just helping with driving, would be ideal. Mother is indeed going to come in Monday from [place]. Discussed transition off effexor onto prozac as temporary transition off AD altogether. LMT started. Objective: Vital Signs Temp Pulse Resp BP Pulse Ox 36.8 C 88 20 128/78 H 100 07/06/18 07:07 07/06/18 07:07 07/06/18 07:07 07/06/18 07:07 07/06/18 07:07 Laboratory Results 06/27/18 06:50 07/03/18 07:00 07/05/18 07/06/18 07/07/18 05:59 05:59 05:59 Intake Total 1000 Output Total 0 Balance 1000 ICD10 Worksheet Patient Problems: Problems Problem Status Onset Depression Acute Suicidal ideation Acute
--- NOTE | 2018-07-06 07:56 | PDECTPN ---
ECT Progress Note Patient Problems: Problems Problem Status Onset Code Depression Acute F32.9 Suicidal ideation Acute R45.851 Date: 07/06/18 Treatment#: 5 ECT provider: Shine Allen Anesthesia: Lee Navarrete Stimulus dose (%): 100 Pulse width: 0.5 ECT EMG (sec): 21 ECT EEG (sec): 28 ECT treatment type: bilateral QIDS-SR Total Score: 5 QIDS-SR Question #12 Score: 1 MMSE Total Score (Max = 21): 21 Next ECT date: 07/20/18 Next ECT time: 08:00 O/P psychiatrist follow up with Dr.: Tyrese O/P psychiatrist follow up: phone, voice message Home medications: Medication Instructions Recorded Levothyroxine [Synthroid 150 mcg 112 mcg PO DAILY06 03/20/18 (*)] [place] Carbonate [[place] 300 mg PO DAILY AT 10AM 03/20/18 Carbonate Cap 300 mg (*)] Venlafaxine Xr [Effexor Xr 75MG 75 mg PO DAILY 04/18/18 (*)] Hydroxyzine Pamoate [Vistaril] 50 mg PO Q6HRS PRN 06/25/18 [place] Carbonate ER [Eskalith Cr 450 mg PO QID 06/25/18 450 mg (*)] Loperamide HCl [Imodium 2 mg (*)] 2 mg PO PRN PRN 06/25/18 Mirtazapine [Remeron] 30 mg PO HS 06/25/18 Venlafaxine Xr [Effexor Xr] 150 mg PO DAILY 06/25/18 busPIRone [Buspar (*)] 10 mg PO BID 06/25/18 clonazePAM [klonoPIN (*)] 1 mg PO TID PRN 06/25/18 Medication review: completed Current treatment plan: acute phase Treatment plan frequency: 3 times per week ECT narrative: 07/02/18 REVIEWED Psych notes from this and last hospital stay, as well as H and Ps and Labs. Pt has had some relief after a few inpatient acute, B ECTs with QIDS down to 8/ 1 from 01/05. Complains today of an exacerbation over last day of her chronic diarrhea. SHe has subjective appreciation of feeling less dysphoric and less intense rumination/SI. No med changes. Labs reveal elevated Total Bili. Will re check CMP and a few organic labs. Her diarrhea started well after [place] started. Level was 0.7 in 05/01. Will hold Li for rest of acute course to aid GI symptoms and to decrease cognitive impact of ECT. Will restart at same dose once acute ECT done. Counselled her to do mECT this time, if possible, for up to (if not beyond) six months. Affect constricted, speech impov and monotone, has a bit of a perplexed look, yet is A and O x 3. Knew her meds. Pos SI, without intensity or intent/plan at moment. PMR. 1) check labs 2) cont acute B ECT thru this week 3) hold Li during acute ECT 4) GI work up once home. R/O Choley issues vs IBS-D. 5) Consider some other med options such as add Lamotrigine, and possibly d/c effexor (using Prozac temporarily to circumvent seratonin discontinuation syndrome 6) CC to establish social support that would allow for mECT. 07/04/18 Spoke at length with Dr Xiong who confirms hi likelihood of bipolar spectrum illness, with his own objective observation of hypomanic behaviors. Likely,, not since Feb however. He is in agreement re needing some med changes as previous regimen did not help adequately, clearly. He agrees with using Prozac to help d/c short 1/2 life effexor and to start LMT. Discussed both with pt who provided I/C to do these changes. She understands the risk of rash/Boyle Luis Armando and will call MD immediately if she notes rash, fever, mouth sores, etc. Handout on drug given. MTHFR drawn today. Affect still constricted but able to evince a smile today. Still impov speech. Poor insight and judgement seen in her wish to d/c home on monday after 6 acute ECTs. I have been informed by RN that she may have her own car her. She will NOT be able to drive self home on an ECT day, after 6 acute bilateral tx. I will insist she get a friend/family member to come her and drive her home, or otherwise insist she stay over weekend to convalesce from ECT related SEs. Further, it is unclear whether she will have had enough acute ECT to be truly better, or only partially remitted, which would greatly enhance risk of relatively quick relapse. QIDS is better than upon admission at 7/1, but still some SI, anxiety, rumination and dysphoria 07/06 After four treatments, QIDs down from 04/05 to 06/13 PRIOR to todays ECT. Hence she is substantially better and wishes for this to be her last acute ECT. I tried to encourage maybe one more, but pt refuses and wishes to d/c this Monday to care of mother. Dr Xiong aware of med changes and endorsed them. GI issues somewhat improved, but may need to see GI doc once home. Will restart Natacha bello now that we are done with acute ECT.
[2018-07-06] MEDS: LITHIUM CARBONATE ER 300 MG TAB PO SCH (09:13)
[2018-07-06] MEDS: FLUoxetine 20 MG CAP PO SCH (09:13)
[2018-07-06] MEDS: VENLAFAXINE XR 37.5 MG CAP PO SCH (09:13)
[2018-07-06] MEDS: LEVOTHYROXINE 112 MCG TAB PO SCH (09:13)
[2018-07-06] MEDS: clonazePAM 0.5 MG TAB PO SCH ×3 (09:17→17:51)
--- NOTE | 2018-07-06 13:22 | ASMTCMCOM ---
CM Note CM Note Notes: Client presents as doing better than previous days. Client suggests her mood is "ok today." Additionally, client denies any feelings of anxiety, depression, AVH and/or S/I-H/I. Plan is for MOC to fly into town with possible discharge on Monday with last ECT session today. Follow up apt with outside provider established for next Monday Date Signed: 07/06/2018 01:21 PM Electronically Signed By:Jimi Wisdom. .Keith.,R.P
[2018-07-06] MEDS ORDERED: PROMETHAZINE HCL 25 MG TAB PO PRN (14:48)
[2018-07-06] MEDS ORDERED: HYDROCODONE/APAP 5/325 TAB PO PRN (14:48)
[2018-07-06] MEDS ORDERED: NALOXONE HCL 0.4 MG/ML INJ IVP PRN (14:48)
[2018-07-06] MEDS ORDERED: IBUPROFEN 600 MG TAB PO PRN (14:48)
[2018-07-06] MEDS: lamoTRIgine 25 MG TAB PO SCH (20:26)
[2018-07-06] MEDS: MIRTAZAPINE 30 MG TAB PO SCH (20:26)
[2018-07-06] MEDS: LITHIUM CARBONATE ER 450 MG TAB PO SCH (20:27)
[2018-07-07] MEDS: clonazePAM 0.5 MG TAB PO SCH ×3 (08:23→18:03)
[2018-07-07] MEDS: FLUoxetine 20 MG CAP PO SCH (08:24)
[2018-07-07] MEDS: VENLAFAXINE XR 37.5 MG CAP PO SCH (08:25)
[2018-07-07] MEDS: LITHIUM CARBONATE ER 300 MG TAB PO SCH (08:25)
[2018-07-07] MEDS: LEVOTHYROXINE 112 MCG TAB PO SCH (08:25)
--- NOTE | 2018-07-07 14:10 | GDS ---
[f rep st] DISCHARGE SUMMARY IDENTIFYING DATA: The patient is a 37-year-old female with history of bipolar 2 disorder a nd chronic treatment refractory depression. She had been hospitalized under Dr. More's care in 2018, and received 10 ECT treatments at that point. Her last one was on 05/09/2018. She is t reated by Dr. Noah Xiong on the [facility]. This patient lives in [place]. She has montemayor ited support system at home, which involves an ex-, who has primary custody of child. She griffiths s have a mother who lives out of state who had historically helped out in the past when she was ill. She was admitted during this hospitalization on 06/25/2018, and is anticipated to be discharged unde r her mother's care on 07/08/2018. REASON FOR ADMISSION: Please see Dr. More's initial consultation. She has clearly had an exacerb ation of her bipolar depression and scores a 23 on her QIDS, with question #12 pertaining to suicidal ity being a 3, which indicates fairly high degree of suicidal ideation. She has had numerous medicat ion trials and 2 ketamine infusions without benefit. She is not able to function in self-care or [facility] helping care for her children. She has global insomnia, severe anxiety, dysphoric mood, hopel essness and helplessness. Energy motivation is poor. She is anhedonic. Focus and concentration wer e poor. Significant suicidal ideation with several fantasies about how she might kill herself, but n o specific plan. HISTORY AND PHYSICAL: Performed by Dr. Cayetano Finn assessed: 1. 3+ months of diarrheal stools and weight loss with no infection on testing. Could be irritable b owel aggravated by mental health issues. However, if she does not resolve with treatment of that, sh e should have her PCP refer her to injector assembler to consider colonoscopy. 2. Hypothyroidism, with recent high TSH on lower dose. Needs recheck of her TSH to be sure in range . 3. Elevated white blood cell count with no specific symptoms or exam changes to suggest cause (he re peated this and it was within normal limits). ROUTINE LAB WORK: Patient's CBC initially did have an elevated white count of 17.7, but on recheck 2 days later, it was 10.4. Bio Chem profile was within normal limits. Hemoglobin A1c was 4.8. Calci um was normal at 9.2. She had an initial elevated total bilirubin at 2.2, but upon recheck a week la ter, it was down to 1.0. AST and ALT were within normal limits. Highly sensitive C-reactive protein was normal at 0.4. Vitamin B12 was normal at 997 and 25-hydroxy vitamin D was 40. TSH was 4.40, ar guably in the higher range of normal. 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 HOSPITAL COURSE: The patient underwent a total of 5 acute bilateral ECT treatments with notable bene fit. QIDS score that was initially 22 and question #12 scoring a 3, reduced down to a total score of 5 and question #12 being a 1, indicating some less intense suicidal ideation with no intent or plan. Her sense of hopefulness and future orientation improved. Affect was brighter, and she was more en gaged on the unit. During the hospital stay, her lithium dose was held for the 2nd week of treatment to prevent potential for increased neurocognitive side effects, but restarted after her last treatme nt on Monday, 07/06. After discussion with patient and Dr. Xiong, it was decided that she be given a trial with another mood stabilizer, Lamictal, to help augment the lithium. She understands the ris ks of this medication, especially the potential for rash and Boyle-Luis Armando syndrome, and understand s the slow titration expected. She gave her informed consent to start this medication. Furthermore, given her history of inadequate response to antidepressants and even possibly some mood elevation in response to them, it was decided to try to get her off the Effexor. We tapered that medication dose from 150 to 75 and then 37.5, while concurrently an adding Prozac. The Prozac at 40 mg a day will b e continued for another 7 days after discharge, and then discontinued itself. Because of its long ruffin lf life, that should circumvent the potential for serotonin discontinuation syndrome that otherwise c ould have occurred if the Effexor itself was simply stopped. GI symptoms persisted, but might have s omewhat improved toward the end of her stay and she will continue to need GI workup once home. edi coordinator helped arrange for mother to come into town this weekend, as patient has her car here and should not drive after 5 acute ECTs. Mother will drive her home to [place] and stay with h er at least a week per the MD's recommendation. We discussed at length the benefits of maintenance E CT. The patient understood this, but does acknowledge that logistically it may be difficult for this to happen. Dr. Xiong, however, indicates that there is a new center on the [facility] that is o pening up that could do ECT there. It is strongly recommended that she follow through with that. DISCHARGE MEDICATIONS: Klonopin 0.5 mg at 12 noon and 6:00 p.m. and 0.25 mg in the morning. Prozac 40 mg p.o. daily x8 more days. Lamictal 25 mg p.o. q.h.s. (the patient has a prescription that descr ibes how she should titrate that medication). Synthroid 112 mcg p.o. daily. [place] carbonate ER 30 0 mg in the morning and 450 mg h.s. Loperamide 2 mg p.o. q.6 hours p.r.n. diarrhea. Mirtazapine 30 mg p.o. q.h.s. She will be off the venlafaxine altogether by Monday, 07/08. DISPOSITION: The patient will return home with her mother, who will fly in and drive her back to [facility]. She should provide 05/09 supervision and monitor the patient's medications and decreas e access to any lethal means of self-harm such as firearms, sharp objects, or [id number] or pre scribed medication. I would recommend she not drive for about a week after this last treatment. I d id schedule her for a maintenance treatment on July 20 at 8 a.[address] She should see Dr. Noah kohler as soon as possible, and she should get a referral from her primary care doctor to followup with a injector assembler regarding the chronic diarrhea. Lamictal has been started. She is aware of th e rash. She understands to increase by 25 mg every week under Dr. Xiong's guidance. She will likel y want to titrate this to at least 200 mg. I often recommend checking a blood level of lamotrigine a t that point. DISCHARGE DIAGNOSES: 1. Bipolar 2 disorder, depressed, severe, without psychosis. 2. Anxiety disorder, unspecified. 3. Marginal supports, occupational problems, financial problems, parenting problems. /[id number]/MODL
--- NOTE | 2018-07-07 14:22 | ASMTCMCOM ---
CM Note CM Note Notes: CC reached out to [facility] ; She confirmed that she will fly into [place] tomorrow, and arrive in [place] around 1pm to p/u client. Follow up Appt is already in client's chart. Date Signed: 07/07/2018 02:21 PM Electronically Signed By:Jimi Wisdom. .Sabina,R.P
--- NOTE | 2018-07-07 20:00 | SOAPPROG ---
SOAP Progress Note Assessment/Plan: Assessment: 37yo CF with BMD 2, predominantly depressed. Admitted for ECT. WEEKEND PLAN: 07/07/18 19:57 1. Patient's mood has improved. Her affect is slightly brighter, but still has limited range. 2. Patient's MOC is flying to [place] from out of state to supervise patient at home when she discharges. 3. D/C tomorrow. Subjective: Patient has slightly improved mood. She is no longer a DTS. She denies any intent or plan to hurt herself or others. Her MOC is flying into [place] tomorrow and will pick patient up and drive her back to [place]. MOC will stay with patient for several days (longer if needed) to supervise her outpatient care. Objective: Vital Signs Temp Pulse Resp BP Pulse Ox 37.4 C 92 14 91/56 L 100 07/07/18 06:00 07/07/18 06:00 07/07/18 06:00 07/07/18 06:00 07/07/18 06:00 Laboratory Results 06/27/18 06:50 07/03/18 07:00 07/06/18 07/07/18 07/08/18 05:59 05:59 05:59 Intake Total 1000 Balance 1000 MSE: Affect: Slightly more range Mood: "OK" TP: Linear TC: Denies SI/HI, no delusions Insight/Judgment: Fair - Time Spent With Patient Time Spent With Patient: 15" - Pending Discharge Pending Discharge Within 24 Hours: Yes Pending Discharge Date: 07/08/18 (D/C on Monday with MOC) Pending Discharge Time: 11:00 ICD10 Worksheet Patient Problems: Problems Problem Status Onset Depression Acute Suicidal ideation Acute
[2018-07-07] MEDS: LITHIUM CARBONATE ER 450 MG TAB PO SCH (20:51)
[2018-07-07] MEDS: lamoTRIgine 25 MG TAB PO SCH (20:52)
[2018-07-07] MEDS: MIRTAZAPINE 30 MG TAB PO SCH (20:52)
[2018-07-08 06:57] VITALS: BP 108/66
[2018-07-08] MEDS: LEVOTHYROXINE 112 MCG TAB PO SCH (08:22)
[2018-07-08] MEDS: FLUoxetine 20 MG CAP PO SCH (08:22)
[2018-07-08] MEDS: LITHIUM CARBONATE ER 300 MG TAB PO SCH (08:22)
[2018-07-08] MEDS: clonazePAM 0.5 MG TAB PO SCH ×2 (08:23→12:07)
[2018-07-08] MEDS: VENLAFAXINE XR 37.5 MG CAP PO SCH (08:24)
--- NOTE | 2018-07-08 14:11 | ASMTBHDC ---
Notes Note: Notes: CC briefly met with pt. Pt. reports wanting directions on how to titrate her medications. Pt. reports being able to get to her follow up appointment on 07/10/18 @ 3pm. Pt. reports she is "ready to go back". Pt. denied SI, HI, AVH and paranoia. Pt. asked CC to cancel her follow up ECT appointment stating she doesn't want to go to it. Pt. reports her mom will pick her up and drive her home. Pt. presents as alert, calm. flat affect, staring eye contact, groomed, and cooperative. Pt. has an appointment with Dr. Xiong on 07/10/18 @ 3pm. CC to cancel pt's ECT appointment on 07/20/18 @ 8am. Date Signed: 07/08/2018 02:09 PM Electronically Signed By:Anastasiia Shaikh.SUSHILA,FRONT END ALIGNMENT SPECIALIST,NCC
--- NOTE | 2018-07-08 18:17 | SOAPPROG ---
SOAP Progress Note Assessment/Plan: Assessment: 37yo CF with BMD 2, predominantly depressed. Admitted for ECT. WEEKEND PLAN: 07/07/18 19:57 1. Patient's mood has improved. Her affect is slightly brighter, but still has limited range. 2. Patient's MOC is flying to [place] from out of state to supervise patient at home when she discharges. 3. D/C tomorrow. 07/08/18 18:14 1. Met briefly with patient and her mother who flew into [place] this AM. Discussed titration schedule for Lamictal which Dr. Allen prescribed for her. Information about med adjustments was discussed with patient by Dr. Allen and included in his d/c instructions. Answered patient's questions to her satisfaction. 2. MOC plans to stay with patient at her home as long as needed. 3. Prior to d/c, patient said she didn't want to return on 07/20 for her scheduled maintenance ECT. MD strongly advised patient to keep this appointment and warned about risk of relapse. 4. Patient is in stable condition and safe to d/c with MOC. Subjective: MD met briefly with patient and MOC prior to d/c. Patient is in stable condition and mood has improved since admission. She denies any thoughts, intent or plan to hurt herself or anyone else. Objective: Vital Signs Temp Pulse Resp BP Pulse Ox 36.6 C 75 14 108/66 100 07/08/18 06:00 07/08/18 06:00 07/08/18 06:00 07/08/18 06:00 07/08/18 06:00 Laboratory Results 06/27/18 06:50 07/03/18 07:00 07/07/18 07/08/18 07/09/18 05:59 05:59 05:59 Intake Total 1000 Balance 1000 MSE: Affect: Flat Mood: "Better" TP: Linear TC: Denies SI/HI Insight/ Judgment: Poor a/e/b patient's decision not to pursue maintenance ECT, MD strongly encouraged patient to continue with ECT to avoid relapse - Time Spent With Patient Time Spent With Patient: 10" - Pending Discharge Pending Discharge Within 24 Hours: Yes Pending Discharge Within 48 Hours: No Pending Discharge Date: 07/09/18 (D/C today) Pending Discharge Time: 11:00 ICD10 Worksheet Patient Problems: Problems Problem Status Onset Depression Acute Suicidal ideation Acute
== END 2018-07-08 14:25 | disposition home or self-care (01) | DRG 885 ==
LOC: BBEH 09:45
PROVIDERS: ADMIT Internal Medicine; ATTEND Psychiatry & Neurology Psychiatry
PROC: GZB2ZZZ Electroconvulsive Therapy, Bilateral-Single Seizure (ICD-10-PCS; principal; 2018-06-27)
DX: F31.4 Bipolar disorder, current episode depressed, severe, without psychotic features (principal); F41.9 Anxiety disorder, unspecified; E03.9 Hypothyroidism, unspecified
CPT/HCPCS: 81291-90; 82607-90; 86141-90